=== PATIENT | female | born 1970 | race Caucasian/White ===

== ENCOUNTER → 2018-04-14 12:35 | Outpatient (CLI) | payer BC, SELFPAY ==
--- NOTE | 2018-04-14 12:40 | BI_ITS ---
MAMMOGRAPHY - BILATERAL SCREENING REASON FOR EXAM: Female, 47 years old. Routine annual screening examination. PERTINENT HISTORY: Non-contributory. TECHNIQUE: Digital bilateral breast lucie (3D mammographic acquisition) in the CC and MLO projections. 2-D mediolateral oblique (MLO) and craniocaudad (CC) views of both breasts were obtained. CAD: Full Field Digital Mammography with Computer Added Detection was performed. COMPARISON: Comparison is made with prior study dated September 15, 2016 and December 18, 2010. FINDINGS: Breast Composition: The breasts are heterogeneously dense, which may obscure small masses. There are no dominant masses or suspicious calcifications. Stable benign-appearing bilateral axillary lymph nodes. No other significant abnormalities are identified. There has been no significant change since the prior study. BI/SCREENING MAMM (CAD), BILAT IMPRESSION: Stable bilateral screening mammogram. Yearly follow-up mammogram recommended. (A) ASSESSMENT CATEGORY: BIRADS Category 2: Benign. A letter regarding these results will be sent to the patient by the facility within 30 days. Approximately 10% of breast cancers are not detected by mammography. A normal mammogram should not delay biopsy of a clinically suspicious abnormality. [id number] Electronically Signed: Theron Wall MD at 13:51 EST Tel [phone], Service support ,
--- OUTSIDE RECORDS SUMMARY | 2018-05-31 07:43 | XMS RPT_ITS ---
:1970 Author Organization OHIP Care Team Providers Name Role Phone Cristofer Maya Attending Unavailable Cristofer Maya Referring Unavailable Malys, Bree Primary Care Unavailable Cristofer Maya Attending Unavailable Cristofer Maya Referring Unavailable Malys, Bree Primary Care Unavailable Cristofer Maya Attending Unavailable Cristofer Maya Referring Unavailable Malys, Bree Primary Care Unavailable PROBLEMS PROBLEMS DATE TYPE CONDITION / CODE ATTENDING STATUS SOURCE 05/10/2018 Unknown N92.1 - Excessive Cristofer Maya Active [place] and frequent Community menstruation with Hospital irregular cycle / Repository N92.1(ICD-10) 04/19/2018 Unknown Z12.4 - Encounter Cristofer Maya for screening for Community malignant neoplasm [facility] cervix / Repository Z12.4(ICD-10) PROCEDURES PROCEDURES No Procedure Records FoundRESULTS RESULTS ENDOMETRIAL BX/CURETTINGS Observed: 05/10/2018 Status: F Source: [facility] 11:30 AM [facility] RE[facility]ITORY Patient: AVTAR FRANCOIS : 1970 (47/F) Acct Num: [id number] Phys: Cristofer Maya MD Unit Num: [id number] Loc: [facility] Specimen: [id number] Received: 05/10/181541 Spec Type: ENDOM BX/C TISSUES 1 TISSUES: Endometrium, NOS COMMENT Immunohistochemistry (RF19-) for surrogate HPV marker (p16) supports the above diagnosis. Case has been reviewed in consultation with Dr. Chambers who concurs with the above diagnosis. IDC:AM GROSS DESCRIPTION Received in fixative is one container labeled with the patient's name and designated endometrial biopsy. The specimen consists of multiple irregular and mucoid fragments of light pink-osorio soft tissue that in aggregate measure 2.5 x 2.5 x 0.2 cm. The specimen is totally submitted in one cassette. / AM:adrian 02/17 TC:5 CPT: 94423 HEADER OPERATION: Endometrial biopsy PRE-OP DIAGNOSIS: N92.1 TISSUE SUBMITTED: Endometrial biopsy MICROSCOPIC DESCRIPTION Slides are reviewed. MICROSCOPIC DIAGNOSIS Endometrial biopsy: Fragments of proliferative endometrium with eosinophilic metaplasia and glandular breakdown. Detached, unoriented fragments of squamous epithelium with moderate dysplasia ( HGSIL and NUBIA II). Fragments of benign endocervical mucosa. SJ:adrian 05/12/18 Signed Chivo Corral MD 05/15/18 <signature on file> Performed By: #### PEMB #### [facility] [address] [place] [address]. [place], [address] IMMUNOHISTOCHEMISTRY Observed: 05/10/2018 Status: F Source: [facility] 12:00 AM [facility] REPOSITORY Patient: AVTAR FRANCOIS : 1970 (47/F) Acct Num: [id number] Phys: Cristofer Maya MD Unit Num: [id number] Loc: [facility] Specimen: [id number] Received: 05/12/18 4949 Spec Type: IMMUNO TISSUES 1 TISSUES: Endometrium, NOS SPECIMEN INFORMATION: Tissue Source: Endometrial biopsy Clinical Info: N92.1 Specimen Number: [id number] CPT code: 62028, 72180 METHODOLOGY: Deparaffinized sections of prefer/formalin-fixed tissue or PAP/DQ stained slides are incubated with monoclonal/polyclonal antibodies/oligonucleotide probes. Localization is made via biotin free immunoperoxidase method. Appropriate controls are performed and reacted as expected. Results on target cell population are indicated in the following table: RESULTS: ANTIBODY / CLONE RESULT P16 (E6H4) positive Ki-67 (30-9) positive These tests were developed and their performance characteristics determined by [facility]. They may not have been cleared or approved by the U.S. Food and Drug Administration. The FDA has determined that such clearance or approval is not necessary. INTERPRETATION: Endometrial biopsy: Detached and unoriented fragments of squamous epithelium with moderate dysplastic changes. SJ:rg 05/15/18 Case has been reviewed in consultation with Dr. Chambers who concurs with the above diagnosis. IDC:AM PHYSICIAN AND INSTITUTION [address] [address] Signed Chivo Corral MD 05/15/18 <signature on file> Performed By: #### PIMM #### [facility] [address] [place] [address]. [place], [address] PAP IG W/REFLEX HR Collected: 04/19/2018 Status: F Source: [facility] HPV APTIMA 10:30 AM [facility] REPOSITORY Order Comment: CYTOLOGY INFORMATION: - CLINICAL INFORMATION: - DATE LMP/MENOPAUSE: 04/07/18 LMP - COLLECTION VIAL: Thin Prep Vial - PROGRAMMING MANAGER SOURCE: CERVICAL/ENDOCERVICAL - COLLECTION TECHNIQUE: BRUSH/SPATULA Specimen Comment: [id number] Specimen Comment: Source.............Cervix Specimen Comment: LMP / Prev Treat...TRD=[id number] Specimen Comment: No. of containers..01 ThinPrep Vial TYPE CODE TESTS RESULT OUT OF RANGE REFERENCE UNITS LAB L7400.0800 . Normal DIAGN Comment Result Comment: NEGATIVE FOR INTRAEPITHELIAL LESION AND MALIGNANCY. CELLULAR CHANGES ASSOCIATED WITH INFLAMMATION ARE PRESENT. LAB L7400.0900 . Normal ADEQ Comment Result Comment: Satisfactory for evaluation. Endocervical and/or squamous metaplastic cells (endocervical component) are present. LAB L7400.1400 . Normal PERFORM Comment Result Comment: Estefani Leos, Tableau Analyst (ASCP) LAB L7400.2575 . Normal TEST METHOD Comment Result Comment: This liquid based ThinPrep(R) pap test was screened with the use of an image guided system. LAB L7400.2600 . Normal . COMM LAB L7400.2700 . Normal PAPSMR Comment Result Comment: The Pap smear is a screening test designed to aid in the detection of premalignant and malignant conditions of the uterine cervix. It is not a diagnostic procedure and should not be used as the sole means of detecting cervical cancer. Both false-positive and false-negative reports do occur. LAB L7400.2800 . Normal HPV RFLX Comment Result Comment: The HPV DNA reflex criteria were not met with this specimen result therefore, no HPV testing was performed. Performed at: [facility] [id number] Landscape Technician: Ana Cristina Mcgovern MD, Phone: [phone] Performed By: #### L7400.0357 #### [facility] (refer to report for specific site) refer to report for address and phone number SCREENING MAMM (CAD), Observed: 04/14/2018 Status: F Source: [facility] 12:40 PM [facility] REPOSITORY [facility] Imaging Services [address] [place] [address] SCREENING MAMM (CAD), BILAT MR#: [id number] Acct: [id number] Name: AVTAR FRANCOIS Rep #: [id number] : 1970 F 47 From: Theron Wall MD PCP: Bree Hamilton DO Status: [facility] Study: SCREENING MAMM (CAD), BILAT Date of Exam: 04/14/18 Exam# [id number] Ordering Dr: Cristofer Maya MD MAMMOGRAPHY - BILATERAL SCREENING REASON FOR EXAM: Female, 47 years old. Routine annual screening examination. PERTINENT HISTORY: Non-contributory. TECHNIQUE: Digital bilateral breast lucie (3D mammographic acquisition) in the CC and MLO projections. 2-D mediolateral oblique (MLO) and craniocaudad (CC) views of both breasts were obtained. CAD: Full Field Digital Mammography with Computer Added Detection was performed. COMPARISON: Comparison is made with prior study dated September 15, 2016 and December 18, 2010. FINDINGS: Breast Composition: The breasts are heterogeneously dense, which may obscure small masses. There are no dominant masses or suspicious calcifications. Stable benign-appearing bilateral axillary lymph nodes. No other significant abnormalities are identified. There has been no significant change since the prior study. BI/SCREENING MAMM (CAD), BILAT IMPRESSION: Stable bilateral screening mammogram. Yearly follow-up mammogram recommended. (A) ASSESSMENT CATEGORY: BIRADS Category 2: Benign. A letter regarding these results will be sent to the patient by the facility within 30 days. Approximately 10% of breast cancers are not detected by mammography. A normal mammogram should not delay biopsy of a clinically suspicious abnormality. [id number] Electronically Signed: Theron Wall MD at 13:51 EST Tel [phone], Service support , CC: Cristofer Maya MD; Bree Hamilton DO Enforcement Manager: Signed ALLERGIES ALLERGIES DATE TYPE / NAME / CODE REACTION SEVERITY SOURCE CODE 04/03/2015 Drug diphenhydramine Other Unknown [place] Allergy/41 HCl/[id number](RXNORM Community [id number]([facility]) Repository 04/03/2015 Drug Penicillins/[id number] Hives Unknown [place] Allergy/41 6(RXNORM) Community 0770024([facility]) Repository ENCOUNTERS ENCOUNTERS ADMIT/DISCHARGE ACCOUNT ADMITTING ENCOUNTER LOCATION SOURCE NUMBER CLASS 05/10/2018 [id number] Ambulatory [place] [facility] ing:[facility] Repository 04/19/2018 [id number] Ambulatory [place] 4 [facility] ing:[facility] Repository 04/14/2018 [id number] Ambulatory [place] 9 [facility] ing:OPBI Repository PAYERS PAYERS ENCOUNTER GUARANTOR PAYER SUBSCRIBER SOURCE 05/10/2018 KASIA Mcclain Primary KASIA Mcclain [place] [id number] Insurance:ANTHEMPolic BRICKERDOB: [facility] y [place]: [id number] [id number] Repository [address]Xys: (330) julia Date:3460-62-42IF [phone] () [address], [place] [address]JB: 05/10/2018 Secondary NOT GIVENUNK Ellie Insurance:SELF PAY [facility] Number: Effective Repository Date:2018-05-10 04/19/2018 KASIA Mcclain Primary KASIA Mcclain [place] [id number] Insurance:ANTHEMPolic BRICKERDOB: [facility] y Number: [id number], [place] [id number] Repository [address]Pvz: (330) julia Date:3596-20-58WP [phone] () [address], [place] [address]CL: 04/19/2018 Secondary NOT GIVENUNK Ellie Insurance:SELF PAY [facility] Number: Effective Repository Date:2018-04-19 04/14/2018 KASIA L Primary KASIA Mcclain [place] [id number] Insurance:ANTHEMPolic BRICKERDOB: [facility] y Number: [id number], [place] [id number] Repository [address]Mrj: (330) julia Date:5010-03-00QF [phone] () [address], [place] [address]RK: 04/14/2018 Secondary NOT GIVENUNK Ellie Insurance:SELF PAY [facility] Number: Effective Repository Date:2018-02-01
== END ==
PROVIDERS: Family Provider Family Medicine; PCP Family Medicine; Referring Provider Obstetrics & Gynecology; Visit Provider Obstetrics & Gynecology
DX: Z12.31 Encounter for screening mammogram for malignant neoplasm of breast (principal)
CPT/HCPCS: 77063; 77067

== ENCOUNTER → 2018-04-19 15:54 | Outpatient (CLI) | payer BC, SELFPAY ==
[2018-04-23 08:43] LABS: HPV Reflexed? NOT INDICATED
== END ==
PROVIDERS: Family Provider Family Medicine; PCP Family Medicine; Referring Provider Obstetrics & Gynecology; Visit Provider Obstetrics & Gynecology
DX: Z12.4 Encounter for screening for malignant neoplasm of cervix (principal)
CPT/HCPCS: 87624; 88175; G0145

== ENCOUNTER → 2018-05-10 16:14 | Outpatient (CLI) | payer BC, SELFPAY ==
--- NOTE | 2018-05-10 | IMM_PTH ---
PATIENT: AVTAR DAVIS LOC: [facility] U#:[id number] AGE/SX: 54/F ROOM: RE05/10/[address]: Dr. Cristofer Maya MD : 1970 BED: DIS: SPEC #: [id number] RECD: 05/12/18 13:37 STATUS: FARIBA REQ #: [id number] KENYON: 05/10/18 00:[address]: Cristofer Maya DEPT: IMMUNOHISTOCHEMISTRY RECD BY: Gracie Leonardo ENTERED: 05/12/18 13:38 SP TYPE: IMMUNO OTHR DR: Dr. Bree Hamilton, DO Tissues: Endometrium, NOS Procedures: p16 (initial) KI-67 (add) PHYSICIAN & INSTITUTION [place] [address] SPECIMEN INFORMATION: Tissue Source: Endometrial biopsy Clinical Info: N92.1 Specimen Number: [id number] CPT code: 15550, 36276 METHODOLOGY: Deparaffinized sections of prefer/formalin-fixed tissue or PAP/DQ stained slides are incubated with monoclonal/polyclonal antibodies/oligonucleotide probes. Localization is made via biotin free immunoperoxidase method. Appropriate controls are performed and reacted as expected. Results on target cell population are indicated in the following table: RESULTS: ANTIBODY / CLONE RESULT P16 (E6H4) positive Ki-67 (30-9) positive These tests were developed and their performance characteristics determined by [facility]. They may not have been cleared or approved by the U.S. Food and Drug Administration. The FDA has determined that such clearance or approval is not necessary. INTERPRETATION: Endometrial biopsy: Detached and unoriented fragments of squamous epithelium with moderate dysplastic changes. SJ:adrian 05/15/18 Case has been reviewed in consultation with Dr. Chambers who concurs with the above diagnosis. IDC:AM
--- NOTE | 2018-05-10 11:30 | EMB_PTH ---
PATIENT: AVTAR DAVIS LOC: [facility] U#:[id number] AGE/SX: 54/F ROOM: RE05/10/[address]: Dr. Cristofer Maya MD : 1970 BED: DIS: SPEC #: [id number] RECD: 05/10/18 15:42 STATUS: FARIBA REEdgar #: [id number] KENYON: 05/10/18 11:[address]: Cristofer Maya DEPT: SURGICAL PATHOLOGY RECD BY: Palmer Silva ENTERED: 05/11/18 10:49 SP TYPE: ENDOM BX/C OTHR DR: Dr. 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 Detached, unoriented fragments of squamous epithelium with moderate dysplasia (HGSIL and NUBIA II). Fragments of benign endocervical mucosa. LAITH:adrian 05/12/18 COMMENT Immunohistochemistry ([id number]) for surrogate HPV marker (p16) supports the above diagnosis. Case has been reviewed in consultation with Dr. Chambers who concurs with the above diagnosis. IDC:AM MICROSCOPIC DESCRIPTION Slides are reviewed. GROSS DESCRIPTION Received in fixative is one container labeled with the patient's name and designated endometrial biopsy. The specimen consists of multiple irregular and mucoid fragments of light pink-osorio soft tissue that in aggregate measure 2.5 x 2.5 x 0.2 cm. The specimen is totally submitted in one cassette. / AM:adrian 05/11/18 TC:5 CPT: 36204
== END ==
PROVIDERS: Family Provider Family Medicine; PCP Family Medicine; Referring Provider Obstetrics & Gynecology; Visit Provider Obstetrics & Gynecology
DX: N92.1 Excessive and frequent menstruation with irregular cycle (principal)
CPT/HCPCS: 88305; 88341; 88342

== ENCOUNTER 2018-09-04 06:01 | Day surgery (SDC) | payer BC, SELFPAY ==
--- NOTE | 2018-08-27 12:07 | PCM.HP.BLA ---
History and Physical Date of Admission: 09/04/18 Surgical History and Physical Michelle Ramos, a 47 year old female 2 0 2 0 2, presents for RAVH/Román Salpingectomy/ unilateral oophrectomy on September 04, 2018 at 7:30. -- NUBIA II on EMBx, Menorrhagia, Desires Sterilization -- Heavy menses which began several years ago. Michelle claims it started gradually. It is located in the vagina. Severity is moderate and worsening. Additional comment: pelvic u/s normal, OCPs not sufficiently helpful for heavy menses and EMBx OK but NUBIA II noted on specimen despite all normal PAPs. Prior cryo to cervix for dysplasia. MEDICATIONS HISTORY: Current medications prescribed by our practice are: 1. EpiPen 0.3 mg/0.3 mL injection, auto-injector, As Directed 2. fluoxetine 20 mg tablet, One pill by mouth once a day 3. hydrochlorothiazide 12.5 mg tablet, One pill by mouth once a day 4. Ortho-Cyclen (28) 0.25 mg-35 mcg tablet, One pill by mouth once a day ALLERGIES: Lactose, V and diarrhea, PCN, Black out, Bee Stings, Anaphalaxis, Benadryl, Loc, Bee Pollen, Anaphylaxis, Benadryl, Mental status changes, Lactose, Vomiting, Penicillins and Feeling faint Infections - Chicken pox and Dooly Illnesses - Lactose intol., hx of abn paps, allergies and hypertension Accidents - no injuries of consequence Hospitalizations - Childbirth and see surgery Review of Systems: GENERAL - Denies fever, or chills SKIN - Denies skin changes EYES - Denies visual changes EARS - Denies difficulty hearing NOSE - Denies nasal congestion or bleeding MOUTH - Denies sore throat or difficulty swallowing NECK - Denies pain or swelling RESPIRATORY - Denies shortness of breath or wheezing CARDIOVASCULAR - Denies palpitations or chest pain GASTROINTESTINAL - Denies nausea, vomiting, diarrhea, constipation GENITOURINARY - Denies dysuria, frequency of urination, incontinence of urine MUSCULOSKELETAL - Denies joint or muscle pain NEUROLOGICAL - Denies localized numbness or weakness PSYCHIATRIC - Denies depression or anxiety ENDOCRINE - Denies heat or cold intolerance, weight loss or gain HEMATO-IMMUNOLOGIC - Denies excessive bleeding with cuts SOCIAL HISTORY: Alcohol Use - denies drinking Smoking - denies smoking Diet - Avoids Dairy products as she lactose intolerant Lifestyle - low stress lifestyle and Exercise - minimal Seat Belt Use - always Employer - [employer] Job Description - Strategic Planning Manager Illicit Drug Use - denies use of street drugs Sexual Activity - and ACTIVE ONE PARTNER Residence - lives with Hours Worked - 10 Spouse-Sig Other Name - Aman Spouse-Sig Other Occupation - [employer] Helper----K[employer] Spouse-Sig Other Phone No - [phone] Children Name(s) - Chris Amos Control - Ortho T[employer] FAMILY HISTORY: Maternal Grandmother: DM II. Maternal Grandfather: Heart Disease. Paternal Grandfather: Heart Disease. MENSTRUAL HISTORY: LMP Known?- DefiniteAmount/Duration - 2 days, Regularity - Regular, Frequency - 28 days, LMP - 05/04/18, Age Onset Menarche - 12 PAST PREGNANCIES: Total Pregnancies - 4; Full Term Pregnancies - 2; Premature - 0; Abortions, Induced - 0; Abortions, Spontaneous - 2; Ectopics - 0; Multiple Births - 0; Living Children - 2 SURGICAL HISTORY: 1. 8-C/S 2. 09/15/2008 Repeat C section ; Kailey Montiel MD 3. 05/02/1996 Cryosurgery to cervix 4. D + C 12-01-07 ; - SAB PHYSICAL EXAM BP- 150/90 Sitting, Right arm, regular cuff Weight- 175.88118 lbs Height- 62.50 inch BMI:31.56 CONSTITUTIONAL - NAD, well nourished, and well developed SKIN - No rash, lesions, or ulcers HEENT - Normocephalic, PERRLA, EOMI NECK - No nodes, no nuchal rigidity and thyroid normal size and texture LYMPH NODES - Palpation of lymph nodes in neck and groins within normal limits LUNGS - CTA x2 without wheezes, crackles or rales CARDIAC - Regular rate and rhythm without rubs, murmurs, or gallops BREAST - No dominant masses, no tenderness, no axillary adenopathy, no nipple discharge, no skin changes ABDOMEN - Without hepatosplenomegaly, distention, masses, rebound, or guarding; normal bowel sounds; no hernias EXTREMITIES - No edema or calf tenderness NEUROLOGICAL - Cranial nerves II-XII grossly intact PSYCHIATRIC - A and O to time, place, person, mood and affect DETAILED PELVIC EXAM External Genital Vagina - non-tender without lesions Urethra/Urethral Meatus - non-tender Bladder - non-tender Vagina - vaginal flores are pink and moist without loss of rugae and no evidence of atropy Cervix - without cervical motion tenderness and has normal size and features without evident lesions Uterus - multiparous size 6 cm & wt 75-125 g Adnexa - clear without masses or tenderness ASSESSMENT/PLAN: 1. Menorrhagia and Moderate Dysplasia Of Cervix Again reviewed options for treatment and pt desires we proceed with RAVH/BS/USO. Discussed RBAs at length and all questions answered.
[2018-08-30 11:38] LABS: Hematocrit 40.1 % (37-47); Hemoglobin 13.4 g/dl (12.0-15.0); Mean Corp Hgb Conc 33.4 g/gl (32-36); Mean Corpuscular Hgb 29.6 pg (27.0-32.0); Mean Corpuscular Volume 88.7 fL (81-99); Mean Platelet Vol. 10.3 fl (6.2-12.0); Platelet Count 285 K/mm3 (150-450); RBC Distribution Width CV 12.7 % (11.6-14.6); RBC Distribution Width SD 40.8 fl (35.1-43.9); Red Blood Count 4.52 M/mm3 (4.2-5.4)
[2018-08-30 11:43] LABS: Scan Indicated on CBC? Y/N NO
[2018-08-30 11:49] LABS: Internal QC Validated? YES +Cl - CLEAR BKGD; Pregnancy, Serum, hCG Quali. NEGATIVE Negative
[2018-08-30 11:54] LABS: International Normalized Ratio 1.2; Partial Thromboplast Time 30.4 Seconds (24.1-36.2); Prothrombin Time (Protime)PT. 14.9 SECONDS (11.7-14.9)
[2018-08-30 12:08] LABS: ALB/GLOB Ratio 1.1 RATIO (0.9-2.4); AST(SGOT) 15 U/L (15-37); Alanine Aminotransfer ALT/SGPT 21 U/L (13-56); Albumin, Serum 3.8 g/dL (3.2-5.0); Alkaline Phosphatase 64 U/L (45-117); Anion Gap 3 (5-15); BUN 14 mg/dL (7-18); BUN/Creat Ratio 21.2 RATIO (10-20); Calcium,Total 9.2 mg/dL (8.5-10.1); Chloride 104 mmol/L (98-107); Creatinine, Serum 0.66 mg/dL (0.55-1.02); EST Glomerular Filtration Rate 101 mL/min (>60); Est Glom Filt Rate - Afr Amer 123 mL/min (>60); Globulin 3.6 g/dL (2.2-4.2); Glucose 130 mg/dL (74-106); Potassium 4.2 mmol/L (3.5-5.1); Protein, Total 7.4 g/dL (6.4-8.2); Sodium Level 138 mmol/L (136-145); Thyroid Stim Hormone (TSH) 0.51 uIU/mL (0.358-3.74)
[2018-08-30 12:09] LABS: Hemoglobin A1c 6.7 % (4.2-6.3)
[2018-09-04] VITALS (10 sets, daily range): BP systolic 98–174; BP diastolic 55–96; PULSE 72–96; RESP 16–18; TEMP 36.4–37.4; O2SAT 93–100; BMI 31.6
[2018-09-04 06:33] LABS: Internal QC Validated? YES +Cl - CLEAR BKGD; Pregnancy, Urine Negative Negative
[2018-09-04 06:50] LABS: Bedside Glucose 152 mg/dL (70-110)
--- NOTE | 2018-09-04 07:30 | HYST_PTH ---
PATIENT: AVTAR DAVIS LOC: [facility] U#:[id number] AGE/SX: 47/F ROOM: RE09/04/[address]: Dr. Cristofer Maya MD : 1970 BED: DIS: 09/05/2018 SPEC #: [id number] RECD: 09/04/18 09:31 STATUS: FARIBA AAKASH #: [id number] KENYON: 09/04/18 07:[address]: Cristofer Maya DEPT: SURGICAL PATHOLOGY RECD BY: Palmer Silva ENTERED: 09/04/18 09:41 SP TYPE: HYSTERECT OTHR DR: MD Dr. Bree Marino DO Tissues: Uterus, NOS Procedures: Surgery Specimen Level V HEADER OPERATION: Laparoscopic robotic hysterectomy, bilateral salpingo-oophorectomy PRE-OP DIAGNOSIS: Menorrhagia and moderate dysplasia of cervix TISSUE SUBMITTED: Uterus, cervix, bilateral fallopian tubes, bilateral ovaries MICROSCOPIC DIAGNOSIS Uterus, cervix, bilateral fallopian tubes and bilateral ovaries, hysterectomy and bilateral salpingo-oophorectomy: Cervix - mild chronic cystic cervicitis. - Negative for dysplasia. See comment. Endometrium - early secretory endometrium. Myometrium - focal adenomyosis. - Intramural leiomyoma (0.6 cm in greatest dimension). Bilateral fallopian tubes - no pathologic diagnosis. Bilateral ovaries - no pathologic diagnosis. SJ:adrian 09/05/18 COMMENT The entire cervix is examined. Please make reference to previous specimen ([id number]) endometrial biopsy with diagnosis of fragments of proliferative endometrium with eosinophilic metaplasia and glandular breakdown and detached and unoriented fragments of squamous epithelium with moderate dysplasia. MICROSCOPIC DESCRIPTION Slides are reviewed. GROSS DESCRIPTION Received in fixative is one container labeled with the patient's name and designated uterus, cervix, bilateral fallopian tubes, bilateral ovaries. The specimen consists of a uterus with attached bilateral fallopian tubes and ovaries. The uterus with attached cervix measures 7 cm in length x 4 cm in width x 3.2 cm in AP dimension and weighs 47.3 gm. The serosal surface of the uterus is pink and smooth. The attached cervix measures 3.5 cm in length x 3 cm in diameter. The ectocervical mucosa is osorio-pink and smooth. The patulous cervical os measures 1 cm in length. The uterus is opened to reveal a patent endocervical canal. The triangular endometrial cavity measures 2.8 x 2 cm with an average endometrial thickness of 0.1 cm. The endometrial surface is osorio-pink and homogenous. Sections through the myometrium demonstrate cut surfaces which are osorio and homogenous. Grossly, no fibroid or other myometrial lesion is found. The right ovary measures 2.8 x 1.5 x 0.9 cm. The serosal surface is osorio and slightly wrinkled. The ovary is sectioned to reveal corpora albicantia. No lesion is found. The right fallopian tube measures 6.5 cm in length x 0.5 cm in diameter. The serosal surface is pink and smooth. A fimbriated end is present. Cross-sections demonstrate a pinpoint lumen. The left ovary measures 2.4 x 1.5 x 1 cm. The serosal surface is osorio and slightly wrinkled. Sectioning demonstrates a reddish-pink, congested area measuring 0.6 cm in greatest dimension. The left fallopian tube measures 5 cm in length x 0.5 cm in diameter. The serosal surface is pink and smooth. A fimbriated end is present. Cross-sections demonstrate a pinpoint lumen. Personal Banker sections are submitted as follows: 1-9 - cervix, entirely submitted, 10 & 11 - anterior endomyometrium, 12 & 13 - posterior endomyometrium, 14 - right ovary and fallopian tube, 15 - left ovary and fallopian tube. / CE:adrian 09/04/18 TC:5 CPT: 37779
[2018-09-04] MEDS: Ropivacaine 0.5% 30 ML Vial (08:00)
--- NOTE | 2018-09-04 09:27 | OP.PCM_ITS ---
Report of Operation Date of Procedure: 09/04/18 Pre-Operative Diagnosis: Moderate Cervical Dysplasia, Menorrhagia copy that Post-Operative Diagnosis: Moderate Cervical Dysplasia, Menorrhagia Surgery/Procedure Performed:: Robotic Assisted Vaginal Hysterectomy and Bilateral Salpingo-Oophorectomy Description of Surgical Findings:: 8 cm uterus with normal-appearing fallopian tubes and ovaries. Evidence of prior sections as anterior adhesions were present. superintendent recreation: Steve Reaz Type of Anesthesia:: General - Endotracheal Anesthesiologist: Florentino Villalba Specimen's removed: Uterus, bilateral fallopian tubes and ovaries Drains: Richardson to straight drain Estimated Blood Loss (mL): Minimal Fluids Replaced: Crystalloid Description of Procedure: Surgeon: Cristofer Maya MD, FACOG Indication: This is a 47 year old patient who has been having problems with menorrhagia and recent cervical dysplasia. Conservative measures have not been helpful. The patient has been counseled regarding the risks, benefits and alternatives of this procedure including the possibility of bleeding, infection, and injury to surrounding structures such as bowel bladder and all questions were answered. She understands that if BSO is performed that she may need to be on HRT for an indefinite period of time. Procedure: Pt taken to the operating room where after induction of general anesthesia the patient was prepped and draped in the usual sterile fashion and placed on a non-slip Huggy-u-vac device. Trendendelenburg test was satisfactory. Bladder was drained of urine with a Richardson catheter which was left in place. Anterior cervix grasped and cervix was dilated to about 3-4 mm. Uterus sounded to 7 cms. 0-Vicryl suture was placed at the 3:00 and 9:00 position of the cervix. A small V-care device was then placed in the uterus to allow uterine manipulation and attention was turned to the laparoscopic portion of the procedure. Ropivocaine 0.5% was injected approximately 2-3 cm superior to the umbilicus and an 8 mm robotic camera port was introduced directly with intraperitoneal placement confirmed with insufflation. 8 mm robotic side ports were introduced under direct visualization approximately 10.5 cm lateral and 2 cm inferior to the umbilical port. A 5 mm left upper quadrant port was introduced and airseal insufflation with CO2 was started. The above findings were noted. Robot was docked without difficulty and attention turned to the robotic portion of the procedure. Approximately 20 cc of Ropivicaine was used. Bilateral infundibulocal ligaments were ligated with 35 sandoval bipolar coagulation to the level of the round ligament. The posterior aspect of the cervix was identified and then opened for about 1 cm using 25 watt monopolar cautery identifying the V-care device which had been placed vaginally. Bladder flap was opened and divided to the level of the round ligaments using monopolar cautery. Progressive bites were then ligated on each side of the cervix with 35 sandoval bipolar cautery to the uterine arteries. The anterior vaginal mucosa was then entered and cervix circumscribed with monopolar cautery. Uterus and attached ovaries and tubes were then removed through the vagina. Vaginal cuff was closed first with 0-Vicryl Nolberto stitches placed at each angle followed by closure of the mid-cuff with 0-Monocryl V-lock suture in two layers. Pelvis was copiously irrigated with saline and the right ureter bautista noted to peristalse. Robot was undocked and trocars were removed with as much gas as possible. Incisions were closed with 4-0 Monocryl subcuticular sutures and incisions covered with steri-strips and opsite dressing. The patient tolerated the procedure well and was taken to the recovery room in satisfactory condition. Sponge, instruments and needle counts were all correct. There were no apparent complications of the surgery. Clindamycin 600 mg IV was given prior to the procedure. Estimated Blood Loss: Minimal Specimen to Pathology: Uterus and bilateral tubes and ovaries Grafts/Implants Used: None - Complications None - Admit VTE Documentation VTE Present on Admission: Yes VTE Mechan Device Prophylaxis: SCD's VTE Pharm Prophylaxis ordered?: Yes
--- NOTE | 2018-09-04 09:30 | DCINST_ITS ---
Discharge Diet: No Restrictions Discharge Activity: Return to Normal Activity, May not drive while taking narcotic pain medications., May Shower, May Take a Tub Bath May resume sexual activity in: 6-8 weeks Call your doctor if your incision/area has: Continuous Slow Oozing, Sudden Incre ased Bleeding, Increased Pain/ Swelling, Increased Redness, Foul Smelling Discharge Call your doctor if you observe: Fever of 101 or Higher, Inability to urinate, Inability to have a bowel movement, Using more than one pad per hour Allergies/Adverse Reactions: Allergies bee venom protein (honey bee) Allergy (Verified 08/28/18 11:16) Anaphylaxis lactose Allergy (Verified 08/28/18 11:16) Food Allergy Penicillins [PCN] Allergy (Verified 04/03/15 13:49) Hives diphenhydramine HCl [From Benadryl] Adverse Reaction (Verified 04/03/15 13:49) Other Medications to take at Discharge Hydrochlorothiazide 12.5 mg PO DAILY 04/03/15 Fluoxetine [Prozac] 20 mg PO QHS 08/28/18 Docusate Sodium [Colace] 100 mg PO BID PRN PRN #60 cap 09/04/18 Estradiol 2 mg PO DAILY #100 tab 09/04/18 Oxycodone [Oxyir] 5 mg PO Q6H PRN PRN 7 Days #20 tab 09/04/18 The following prescriptions were given: Oxycodone [Oxyir] 5 mg PO Q6H PRN PRN 7 Days #20 tab PRN Reason: Severe Pain (6-02/08) Docusate Sodium [Colace] 100 mg PO BID PRN PRN #60 cap PRN Reason: Constipation Estradiol 2 mg PO DAILY #100 tab Orders to be completed after discharge: Hemoglobin A1c Time Frame: 08/28/18, Location: Laboratory Basic Metabolic Profile (BMP) Time Frame: 08/28/18, Location: Laboratory ,Urine Time Frame: 09/04/18, Location: Laboratory Primary Care Physician: Bree Hamilton DO [Primary Care Provider] - Test Results: Test results from this visit will be discussed in further detail at your follow- up appointment, if applicable. Please Follow Up With: Cristofer Maya MD When: 2 to 3 weeks
[2018-09-04 09:56] LABS: Bedside Glucose 222 mg/dL (70-110)
[2018-09-04 11:50] LABS: Bedside Glucose 205 mg/dL (70-110)
[2018-09-04] MEDS: Lactated Ringers 1,000 ML 150 ML IV ×2 (12:00→19:05)
[2018-09-04] MEDS: hydroCHLOROthiazide 12.5mg 12.5 MG PO (13:03)
[2018-09-04] MEDS: 0.9% NaCl Peripheral Flush Adult/Peds IV ×3 (13:04→22:57)
[2018-09-04] MEDS: Estradiol 1 MG Tablet 2 MG PO (13:04)
[2018-09-04] MEDS: Ketorolac 30 MG/ML Syringe IV ×2 (13:04→19:06)
--- NOTE | 2018-09-04 15:43 | NURSING ---
pt up to bathroom at this time to clean up-- minimal drainage status post op. New pad and underwear placed. Pt tolerated walking well.
[2018-09-04] MEDS: Enoxaparin 30 MG/0.3 ML Syringe SC (19:06)
[2018-09-04] MEDS: FLUoxetine 20 MG Capsule PO (22:31)
[2018-09-04] MEDS: Acetaminophen 500 MG Tablet 1000 MG PO (22:53)
[2018-09-05] MEDS: Ketorolac 30 MG/ML Syringe IV ×3 (01:32→12:24)
[2018-09-05 01:38] VITALS: BP 126/66; PULSE 90; RESP 18; TEMP 37.2; O2SAT 94
[2018-09-05] MEDS: Lactated Ringers 1,000 ML 150 ML IV (02:25)
[2018-09-05 05:43] LABS: Hematocrit 32.5 % (37-47); Hemoglobin 10.9 g/dl (12.0-15.0); Mean Corp Hgb Conc 33.5 g/gl (32-36); Mean Corpuscular Hgb 29.6 pg (27.0-32.0); Mean Corpuscular Volume 88.3 fL (81-99); Mean Platelet Vol. 10.8 fl (6.2-12.0); Platelet Count 221 K/mm3 (150-450); RBC Distribution Width CV 12.5 % (11.6-14.6); RBC Distribution Width SD 39.1 fl (35.1-43.9); Red Blood Count 3.68 M/mm3 (4.2-5.4); White Blood Count 8.6 K/mm3 (4.4-11.0)
[2018-09-05 05:45] LABS: Scan Indicated on CBC? Y/N NO
[2018-09-05 06:08] LABS: Creatinine, Serum 0.72 mg/dL (0.55-1.02); EST Glomerular Filtration Rate 92 mL/min (>60); Est Glom Filt Rate - Afr Amer 111 mL/min (>60); Estimated Creatinine Clearance 75.58 ml/min
[2018-09-05 07:39] VITALS: O2SAT 95
--- NOTE | 2018-09-05 08:49 | PN.OBGYN_ITS ---
Subjective: Patient without complaints. Tolerating diet well. Positive flatus. Pain well controlled. Minimal vaginal bleeding. - Physical Exam Vital Signs Temp Pulse Resp BP Pulse Ox 99.0 F 90 18 126/66 H 94 09/05/18 01:38 09/05/18 01:38 09/05/18 01:38 09/05/18 01:38 09/05/18 01:38 Oxygen Flow Rate (L/min) 2 Oxygen Delivery Method Room Air Weight: 172 lb 9.951 oz Body Mass Index (BMI) 31.6 Finger Stick Blood Glucose 222 Intake and Output for Last 24 Hours 09/03/18 09/04/18 09/05/18 23:59 23:59 23:59 Intake Total 2675 / 2675 2443 / 2443 Output Total 1280 / 1280 1725 / 1725 Balance 1395 / 1395 718 / 718 Laboratory Tests Past 24 Hrs 09/05/18 09/05/18 05:20 05:20 WBC 8.6 RBC 3.68 L Hgb 10.9 L Hct 32.5 L MCV 88.3 MCH 29.6 MCHC 33.5 RDW 12.5 RDW Differential 39.1 Plt Count 221 MPV 10.8 Creatinine 0.72 Estim Creat Clear Calc 75.58 Est GFR (MDRD) Af Amer 111 Est GFR (MDRD) Non-Af 92 POC Glucose 09/04/18 09/04/18 11:41 09:54 POC Glucose 205 H 222 H Wounds are clean, dry, intact. Good urine output. Hemoglobin and creatinine okay. Medical Necessity - Tobacco Use Smoking Status: Never smoker Assessment/Plan Doing well postoperative day #1 status post robotic assisted vaginal hystere ctomy and bilateral salpingo-oophorectomy. Will release to home with routine instructions.
[2018-09-05 09:53] VITALS: BP 134/82; PULSE 80; RESP 16; TEMP 37; O2SAT 96
[2018-09-05] MEDS: Estradiol 1 MG Tablet 2 MG PO (09:56)
[2018-09-05] MEDS: hydroCHLOROthiazide 12.5mg 12.5 MG PO (09:57)
[2018-09-05] MEDS: Acetaminophen 500 MG Tablet 1000 MG PO (10:00)
[2018-09-05] MEDS: 0.9% NaCl Peripheral Flush Adult/Peds IV (12:25)
== END 2018-09-05 12:45 | disposition home or self-care (01) ==
LOC: SDC 06:03 → AC 06:03 → MS3 09:07
PROVIDERS: Anesthesiology; Family Provider Family Medicine; PCP Family Medicine; Referring Provider Obstetrics & Gynecology; Visit Provider Obstetrics & Gynecology
PROC: 0UT94ZZ Resection of Uterus, Percutaneous Endoscopic Approach (ICD-10-PCS; CPT 58552; principal; 2018-09-04 07:10)
DX: N72 Inflammatory disease of cervix uteri (principal); D25.1 Intramural leiomyoma of uterus; N87.1 Moderate cervical dysplasia; N92.0 Excessive and frequent menstruation with regular cycle; N80.0 Endometriosis of uterus
CPT/HCPCS: 58552; 36415; 80053; 81025; 82565; 82962; 83036; 84443; 84703; 85027; 85610; 85730; 86850; 86900; 88307; J7120; A4216; J2405

== ENCOUNTER → 2019-10-16 10:18 | Outpatient (CLI) | payer BC, SELFPAY ==
[2018-09-04 10:52] VITALS: BMI 31.6
--- NOTE | 2019-10-16 10:21 | BI_ITS ---
MAMMOGRAPHY - BILATERAL SCREENING REASON FOR EXAM: Female, 48 years old. Routine annual screening examination. PERTINENT HISTORY: Aunt with breast cancer. TECHNIQUE: Digital bilateral breast lisandra (3D mammographic acquisition) in the CC and MLO projections. 2-D mediolateral oblique (MLO) and craniocaudad (CC) views of both breasts were obtained. CAD: Full Field Digital Mammography with Computer Added Detection was performed. COMPARISON: Comparison is made with prior examination dated April 14, 2018 and September 15, 2016. FINDINGS: Breast Composition: The breasts are heterogeneously dense, which may obscure small masses. There are no dominant masses or suspicious calcifications. Stable benign appearing bilateral axillary methods. No other significant abnormalities are identified. There has been no significant change since the prior study. BI/SCREEN MAMM (CAD) W/LISANDRA BILAT IMPRESSION: Stable bilateral screening mammogram. Yearly follow-up mammogram recommended. (A) ASSESSMENT CATEGORY: BIRADS Category 2: Benign. A letter regarding these results will be sent to the patient by the facility within 30 days. Approximately 10% of breast cancers are not detected by mammography. A normal mammogram should not delay biopsy of a clinically suspicious abnormality. [id number] Electronically Signed: Theron Wall, at 12:20 EDT , Service support ,
--- OUTSIDE RECORDS SUMMARY | 2020-02-17 14:10 | XMS RPT_ITS | CCD ---
:1970 External Reference #:[id number] Author Organization [facility] Care Team Providers Name Role Phone Unavailable Unavailable Unavailable Allergies Reported Allergen Reaction(s) Severity Date of Onset Location Bee Translations: [ BEES] AOF 10-30-2015 - [facility] Reposito ry diphenhydrAMINE 10-27-2007 [facility] Translations: [ [facility] ito DIPHENHYDRAMINE HCL] lactose Translations: [ 10-27-2007 [facility] LACTOSE] [facility] Reposito ry Penicillins Translations: [ [facility] 10-27-2007 [facility] PENICILLINS] [facility] Reposito ry Results Result Name Value Range Unit Interpretation Flag Date Location group a strep by pcr on 2017-02-02 GAS Specimen Source Throat Swab Normal 02-03-[address] [facility] ([id number]) Comment: Performed By: #### GASPCR ## ##[facility] [place], [place] [phone] Group A Strep PCR Negative for Group A Normal 1 [facility] Streptococcus by PCR. [place] ([id number]) Comment: Result Comment: This test wa s developed and its performance characteristics determined by [facility] [place] ([facility] .It has not been cleared or approved by the FDA. -[facility] is regulated under [place] as qualified to perform high-complexity testing. This test is used f or clinical purposes. It should not be regarded as investigational or for re search. Performed By: #### GASPCR ## ##[facility] [place], [place] [id number]- [phone] progress on 2017-01 PROGRESS HNO ID: [id number]: Vania ross 02-01-2017 Hemant (Ibrahima) Timmyervice: (none)Author Clinic Type: Physician AssistantType: Erickson Marcos NotesFiled: 02/01/2017 8:08 PMNote ([id number]) Text:02/01/2017Patient presents with:Sore Throat: x 2 daysEarache: (right) ear x 2 daysCough: x 2 daysFatigue: x 2 daysbodyaches: x 2 daysSUBJECTIVE: This is a 46 year old that is here today for Complaint(s) ofcough and congestion x 2 days. + sinus pain and pressure. Notes cough.Fatigue and body aches associated. + sore throat, son tx for strep last. alos mention right ear pain x 2 days. Denies fever/chills,SOB, wheezing. Notes some eye watering on the right side. Sinuspressure is worse on the right side. Denies fever/chills, halos, visionchanges, contact lenses, nausea, vomiting, hx of cluster HAs.PAST MEDICAL HISTORYDiagnosis Date- Hyperlipemia- HypertensionALLERGIES Bees; Benadryl [Diphenhydramine Hcl]; Lactose; PenicillinsMEDICATIONSCurrent Outpatient Prescriptions:Hydrochlorothiazide 12.5 mg capsule Take 12.5 mg by mouth once daily.cyanocobalamin (VITAMIN B-12) 1,000 mcg tab Take 1,000 mcg by mouth oncedaily.VITAMIN E,DL-ALPHA TOCOPHEROL, (VITAMIN E, BULK, MISC) once daily.pyridoxine (VITAMIN B-6) 100 mg tablet Take 100 mg by mouth once daily.NORGESTIMATE-ETHINYL ESTRADIOL (ORTHO TRI-CYCLEN, 28, ORAL) Take bymouth.codeine-guaiFENesin (ROBITUSSIN AC) 10-100 mg/5 mL syrup Take 5-10 mL bymouth four times daily as needed for Cough. May cause drowsiness.codeine-guaiFENesin (ROBITUSSIN AC) 10-100 mg/5 mL syrup Take 5-10 mL bymouth four times daily as needed for Cough. May cause drowsiness.gemfibrozil (LOPID) 600 mg tablet Take 600 mg by mouth twice daily beforemeals.No current facility-administered medications for this visit.SOCIAL HISTORYSocial History Marital status: Spouse name: Years of education: Number of children:Social History Main Topics Smoking status: Never Smoker Alcohol use: No Drug use: [facility] reviewed and negative other than HPI.OBJECTIVE:BP 124/80 Pulse 86 Temp 36.9 ?C (98.4 ?F) (Tympanic) Resp 16 Wt75.7 kg (166 lb 12.8 oz) BMI 30.51 kg/[id number] Well appearing, alert, in no acute distress, well-hydrated,well nourished.EYES PERRLA MICAH, right conjunctiva mildly injected with tearing. Mildedema of upper eyelid. No periorbital edema or erythema. EOMs intact. andsclera normal.EARS External ears normal, canals clear. Left TM normal. Right TM bulgingand erythematous.NOSE/SINUS Nares normal. Septum midline. Mucosa normal. No drainage orsinus tenderness.THROAT mild erythema, no exudate.uvula midlineNECK Supple, no adenopathy;HEART RRR with normal S1 and S2LUNG clear to auscultation, no wheezing, rhonchi, rales. + cough present.ASSESSMENT/PLAN:1. Sore throat - ICD9: 462, ICD10: J02.9- Rapid Strep negative in the office today and throat culture sent- Discussed supportive care treatment with fluids, rest and analgesia.- The patient may also use OTC cough and cold meds as needed, warm saltwater gargles, throat lozenges and/or OTC throat spray as needed and nasalsaline gtts and suction prn.- The patient should follow up in 3-5 days if symptoms persist or worsen- Call back if drooling, increased temperature, symptoms of dehydrationand/or still sick in one week- RAPID STREP TEST B/O- GROUP A STREPTOCOCCUS BY PCR- CIPROFLOXACIN 0.3 % EYE DROPS- CEFDINIR 300 MG CAPSULEReviewed red flags and when to seek care sooner in ERThe patient indicates understanding of these issues and agrees with theplan.ARIAN Haq-C10/06/2016 cnov on 2017-02-01 CNOV Office Visit Normal 02-01-2017 Viktor and ([facility]) --------PRISCILAAVTAR Zheng instacy S ([id number]) 1970 FDat e Time Provider Dihojwgzke47/3/17 7:30 PM VANIA CHRISTIANSON) WSTR Cayetano yusuf During your visit today, we recorded the following information about you: Temperature Pulse Respiration (32851) Blood pressure 98.4 degrees 86/minute 16/minute 124/80 Weight 75.7 kgBernadebrent Christianson PA-C 02/01/2017 8:08 PM Kdegiv2602/01/2017Patie nt presents with:Sore Throat: x 2 daysEarache: (right) ear x 2 daysCough: x 2 daysFatigue: x 2 daysbodyach es: x 2 daysSUBJECTIVE: This is a 46 year old that is here today for Complaint(s) of coughand con gestion x 2 days. + sinus pain and pressure. Notes cough. Fatigue andbody aches associated. + sore thr oat, son tx for strep last . alosmention right ear pain x 2 days. Denies fever/chills, SOB, wh eezing. Notessome eye watering on the right side. Sinus pressure is worse on the rightside. Denies fever/ chills, halos, vision changes, contact lenses, nausea,vomiting, hx of cluster HAs.PAST MEDICAL HISTORYDiag nosis Date- Hyperlipemia- HypertensionALLERGIES Bees; Benadryl [Diphenhydramine Hcl]; Lacto se; PenicillinsMEDICATIONSCurrent Outpatient Prescriptions:Hydrochlorothiazide 12.5 mg capsule Take 12.5 mg by mouth once daily.cyanocobalamin (VITAMIN B-12) 1,000 mcg tab Take 1,000 mcg by mouth once daily.KEARA MIN E,DL-ALPHA TOCOPHEROL, (VITAMIN E, BULK, MISC) once daily.pyridoxine (VITAMIN B-6) 100 mg tablet Take 100 mg by mouth once daily.NORGESTIMATE- ETHINYL ESTRADIOL (ORTHO TRI-CYCLEN, 28, ORAL) Take b y mouth.codeine-guaiFENesin (ROBITUSSIN AC) 10-100 mg/5 mL syrup Take 5-10 mL by mouthfour times daily as needed for Cough. May cause drowsiness.codeine- guaiFENesin (ROBITUSSIN AC) 10-100 mg/5 mL syrup Take 5- 10 mL by mouthfour times daily as needed for Cough. May cause drowsiness.gemfibrozil (LOPI D) 600 mg tablet Take 600 mg by mouth twice daily beforemeals.No current facility-administered medica tions for this visit.SOCIAL HISTORYSocial History Marital status: Spouse name: Years of educat ion: Number of children:Social History Main Topics Smoking status: Never Smoker Alcohol use: No Drug use: NoREVIEW OF SYSTEMSAll other reviewed and negative other than HPI.OBJECTIVE:BP 124/80 Pu lse 86 Temp 36.9 ?C (98.4 ?F) (Tympanic) Resp 16 Wt 75.7 kg(166 lb 12.8 oz) BMI 30.51 kg/[id number] NCE Well appearing, alert, in no acute distress, well-hydrated, wellnourished.EYES PERRLA BI L, right conjunctiva mildly injected with tearing. Mild edema ofupper eyelid. No periorbital edema or eryt laurence. EOMs intact. and sclera normal.EARS External ears normal, canals clear. Left TM normal. Right TM bul ging anderythematous.NOSE/SINUS Nares normal. Septum midline. Mucosa normal. No drainage or sinustenderne ss.THROAT mild erythema, no exudate.uvula midlineNECK Supple, no adenopathy;HEART RRR with no rmal S1 and S2LUNG clear to auscultation, no wheezing, rhonchi, rales. + cough present.ASSESSMENT/PLAN:1. S ore throat - ICD9: 462, ICD10: J02.9- Rapid Strep negative in the office today and throat culture sent- Dis cussed supportive care treatment with fluids, rest and analgesia.- The patient may also use OTC cough and c old meds as needed, warm salt watergargles, throat lozenges and/or OTC throat spray as needed and nasal sa linegtts and suction prn.- The patient should follow up in 3-5 days if symptoms persist or worsen- Call back if drooling, increased temperature, symptoms of dehydration and/orstill sick in one week - RAPID STREP TEST B/O- GROUP A STREPTOCOCCUS BY PCR- CIPROFLOXACIN 0.3 % EYE DROPS- CEFDINIR 300 MG CAPSU LEReviewed red flags and when to seek care sooner in ERThe patient indicates understanding of these issue s and agrees with the plan.ARIAN Haq- 02/01/2017Referring Provider: SELF [200]Allergies As of Da te: 02/01/2017 Noted Allergy ReactionBEES 10/30/2015 10 - Anaphylaxis Comments: Has epi Nahed Mcclain (DIPHENHYDRAMINE HCL) 10/27/2007 Comments: Black outLACTOSE 10/27/2007PENICILLINS 2007 4 - HivesDate Reviewed: 02/01/2017Reviewed by: Dieter Puentes Search Engine Optimization Manager - Fully AssessedReason for Visit: So re Throat [200] Cmt: x 2 days Earache [243] Cmt: (right) ear x 2 days Cough [28] Cmt: x 2 days Fatigue [ 46] Cmt: x 2 days bodyaches [Other] Cmt: x 2 daysReason For Visit History RecordedPrimary Visit Diagno sis:Sore throat [J02.9]Order(s):RAPID STREP TEST B/O [[id number]] Order #: [id number] GROUP A STREPTOCO CCUS BY PCR [SQGASPCR] Order #: [id number] ciprofloxacin HCl (CILOXAN) 0.3 % ophthalmic solutionUse 1 Thomas p in the right eye four times daily for 7 days.Disp: 1 BottleRfl: 0 cefdinir (OMNICEF) 300 mg capsuleTake 1 capsule by mouth twice daily for 10 days.Disp: 20 capsuleRfl: 0Prescriptions as of 017 Sig: HYDROCHLOROTHIAZIDE 12.5 MG C* Take 12.5 mg by mouth once da* CYANOCOBALAMIN (VIT B-12) 1, 0* Take 1,000 mcg by mouth once * VITAMIN E (BULK) MISC once daily. PYRIDOXINE (VITAMIN B6) 100 M* Take 100 mg by mouth once twila* ORTHO TRI-CYCLEN (28) ORAL Take by mouth. CIPROFLOXACIN 0.3 % EYE DROPS Use 1 Drop i n the right eye f* CEFDINIR 300 MG CAPSULE Take 1 capsule by mouth twice* CODEINE 10 MG-GUAIFENESIN 10 0* Take 5-10 mL by mouth four ti* CODEINE 10 MG- GUAIFENESIN 100* Take 5-10 mL by mouth four ti* GEMFIBROZI L 600 MG TABLET Take 600 mg by mouth twice da*Medication notes this encounter CODEINE 10 MG-GUAIFENESIN 10 0 MG/5 ML ORAL LIQUID >> Dieternallely Puentes Cma 02/01/2017 7:32 PM >> GAYATHRI DIETER WARNER Feb 01, 2017 7:32 PM Completed GEMFIBROZIL 600 MG TABLET >> Dieternallely Puentes Search Engine Optimization Manager 02/01/2017 7:32 PM >> GAYATHRI DIETER WARNER Feb 01, 2017 7:32 PM CompletedProblem List As Of Date: 02/01/2017(None)Prescription s ordered this encounter Disp Refills Start End CIPROFLOXACIN 0.3 % EYE DROPS 1 Momo* 0 02/01/2017 7 Route: RIGHT EYE Sig: Use 1 Drop in the right eye four times daily for 7 days. CEFDINIR 300 MG CAPSUL E 20 c* 0 02/01/2017 02/11/2017 Route: ORAL Sig: Take 1 capsule by mouth twice daily for 10 days. Status:Closed by VANIA CHRISTIANSON PA-C on 02/01/17 Encounters Date Type Reason Provider Location 02-01-2017 - 02-01-[id number] Purpose Family History No Family History Records Found Advance Directives No Advanced Directives Records Found Additional Source Comments FOR RECORDS PERTAINING TO PATIENTS WHO ARE OR HAVE BEEN ENROLLED IN A CHEMICAL DEPENDENCY/SUBSTANCE ABUSE PROGRAM, SOME INFORMATION MAY BE OMITTED. This clinical summary was aggregated from multiple sources. Caution should be exercised in using it in the provision of clinical care. This summary normalizes information from multiple sources, and as a consequence, information in this document may materially changethe coding, format and clinical context of patient data. In addition, data may be omittedin some cases. CLINICAL DECISIONS SHOULD BE BASED ON THE PRIMARY CLINICAL RECORDS. [facility] provides no warranty or guarantee of the accuracy or completeness of information in this document. UNRECOGNIZED CONTENT PROVIDED BELOW FOR UNRECOGNIZED SECTION INFORMATION SOURCE DATE CREATED AUTHOR AUTHOR'S ORGANIZATIO N 10/26/2017 [facility] Cayetano yusuf
== END ==
PROVIDERS: PCP Family Medicine; Referring Provider Obstetrics & Gynecology; Visit Provider Obstetrics & Gynecology
DX: Z12.31 Encounter for screening mammogram for malignant neoplasm of breast (principal)
CPT/HCPCS: 77063; 77067

== ENCOUNTER → 2020-06-17 09:47 | Outpatient (CLI) | payer BC, SELFPAY ==
[2018-09-04 10:52] VITALS: BMI 31.6
[2020-06-17 10:55] LABS: Absolute Lymphocyte Count 1.34 X10^3/uL (0.83-4.51); Absolute Neutrophil Count 2.5 X10^3/uL (2.0-7.7); Basophil# 0.02 X10^3/uL; Basophil% 0.5 % (0-1); Eosinophil# 0.08 X10^3/uL; Eosinophils% 1.9 % (0-5); Hematocrit 38.4 % (37-47); Hemoglobin 12.6 g/dL (12.0-15.0); Lymphocyte # 1.34 X10^3/ul (4.0); Lymphocyte % 31.6 % (19-41); Mean Corp Hgb Conc 32.8 g/dL (32-36); Mean Corpuscular Hgb 29.4 pg (27.0-32.0); Mean Corpuscular Volume 89.7 fL (81-99); Mean Platelet Vol. 10.1 fl (6.2-12.0); Monocyte# 0.28 X10^3/uL; Monocyte% 6.6 % (0-10); NRBC Flagged by Analyzer 0 % (0-5); Neutrophil # 2.51 X10^3/uL (2.7-7.7); Neutrophil % 59.2 % (47-70); Platelet Count 271 K/mm3 (150-450); RBC Distribution Width CV 12.4 % (11.6-14.6); RBC Distribution Width SD 40.4 fl (35.1-43.9); Red Blood Count 4.28 M/mm3 (4.2-5.4); White Blood Count 4.2 K/mm3 (4.4-11.0)
[2020-06-17 11:12] LABS: Hemoglobin A1c 6.3 % (3.8-5.6)
[2020-06-17 12:37] LABS: ALB/GLOB Ratio 0.9 RATIO (0.9-2.4); AST(SGOT) 13 U/L (15-37); Alanine Aminotransfer ALT/SGPT 22 U/L (13-56); Albumin, Serum 3.2 g/dL (3.2-5.0); Alkaline Phosphatase 73 U/L (45-117); Anion Gap 9 (5-15); BUN 15 mg/dL (7-18); BUN/Creat Ratio 23.4 RATIO (10-20); Calcium,Total 8.6 mg/dL (8.5-10.1); Chloride 102 mmol/L (98-107); Cholesterol 259 mg/dL (200); Creatinine, Serum 0.64 mg/dL (0.55-1.02); EST Glomerular Filtration Rate 104 mL/min (>60); Est Glom Filt Rate - Afr Amer 126 mL/min (>60); Globulin 3.6 g/dL (2.2-4.2); Glucose 144 mg/dL (74-106); High Density Lipoprotein 24 mg/dL; Potassium 4.3 mmol/L (3.5-5.1); Protein, Total 6.8 g/dL (6.4-8.2); Sodium Level 135 mmol/L (136-145); Thyroid Stim Hormone (TSH) 0.74 uIU/mL (0.358-3.74); Triglycerides 1836 mg/dL
== END ==
PROVIDERS: PCP Family Medicine; Referring Provider Family Medicine; Visit Provider Family Medicine
DX: E78.5 Hyperlipidemia, unspecified (principal); R73.9 Hyperglycemia, unspecified; Z51.81 Encounter for therapeutic drug level monitoring; R53.83 Other fatigue; Z86.32 Personal history of gestational diabetes
CPT/HCPCS: 36415; 80053; 80061; 83036; 84443; 85025

== ENCOUNTER → 2020-06-25 11:09 | Outpatient (CLI) | payer BC, SELFPAY ==
[2018-09-04 10:52] VITALS: BMI 31.6
--- NOTE | 2020-06-25 11:12 | RAD_ITS ---
STUDY: X-RAY - RIGHT SHOULDER REASON FOR EXAM: Right shoulder pain and loss of range of motion. TECHNIQUE: 4 view(s) of the shoulder. COMPARISON: None. FINDINGS: Normal glenohumeral articulation. Normal acromioclavicular joint. Normal acromion. Normal humeral head and visualized proximal humerus. The soft tissue structures are unremarkable. Normal visualized pulmonary apex. RAD/Shoulder min 2 Views IMPRESSION: Normal x-ray examination of the right shoulder. Electronically Signed: Nate Mccallum MD at 11:55 EST Tel , Service support ,
== END ==
PROVIDERS: PCP Family Medicine; Referring Provider Family Medicine; Visit Provider Family Medicine
DX: M75.81 Other shoulder lesions, right shoulder (principal)
CPT/HCPCS: 73030

== ENCOUNTER 2020-07-22 15:00 | Outpatient (RCR) | payer BC, SELFPAY ==
[2018-09-04 10:52] VITALS: BMI 31.6
--- NOTE | 2020-06-27 16:03 | HP.PTEVAL ---
Patient's Visit Information AVTAR FRANCOIS is a 49 year old F referred to Physical Therapy by Dr. Bree Hamilton DO with a diagnosis of ROTATOR CUFF TENDONITIS. Date of Evaluation: 06/27/20 Physical Therapist: Radu Robertson, PT, Cert MDT, OCS - Visit Plan Frequency: 2x /Week Duration: 4 Weeks Plan: PT INTERVENTIONS ROM,MANUAL THERAPY G-H MOBS,RTC/SCAPULAR STRENHTHENING. POSTURAL EX'S AND MODLATIES - Subjective This 49 y/o female presents to physical theray with RTC tendonitis . Patient has had right shoulder pain for 7 months which has been progressively worse with lifting. Pain located lateral deltoid referrs to tricep region. Symptom where incidous onset. Patient symptoms decsribed as ache . Patient pain worse [place] activities ,lifting ,reaching behind back . Patient pain affects ADLS' housework tasks . Patient denies paratheisa /tingling. Patient has difficultly sleeping at night. Patient pain affects QOL and function/job demands.Patient seen DR x-rays and recommended PT and overcounter ibuprofrin. VOCATION: Lecturer In Computer Science. SOCIAL: - Pain Right Shoulder Pain Intensity (Out of 10): 0 Pain Intensity Range: 10 Comment: 8/10 with lifting - Objective POSTURE: mild foward posture. NEURO: denies parathesia/tingling. PLALAPTION: unremarkable. AROM: shoulder flexion 120 degrees,abduction 135 degrees in scapation,ER 87 degrees,IR 70 degrees,receah behind back L3. PROM: shoulder flexion/abduction 160 degrees,ER 90 degrees. MMT: RTC 4/5,deltoid 4-/5,scapular strength 3/5. CAPSULAR RESTRICTIO: mild tight - Special Tests R Shoulder Supine Impingement Test - RC Tear: Negative R Shoulder Lift Off Test - Subscapular Tear: Negative R Shoulder Drop Sign - IS Test: Negative R Shoulder Belly Press - SupScap: Negative R Shoulder Neer - Impingement: Positive R Shoulder Kaur Uziel - Impingement: Positive - Goals Goal 1:: Patient to be I with HEP Goal Time Frame: 4-6 Weeks Goal 2:: Patient decrease pain by 70% or > to improve function and ADLS' Goal Time Frame: 4-6 Weeks Goal 3:: Patient to increase AROM shoulder symmtrical to left to improve function with ADL'S and job demands. Goal Time Frame: 4-6 Weeks Goal 4:: Patient to increase quick dash by 10 points or > to improve function Goal Time Frame: 4-6 Weeks Goal 5:: Patient to improve deltoid strength 4/5 to improve function. Goal Time Frame: 4-6 Weeks - Rehabilitation Potential Physical Therapy Diagnosis: This patient has impairment with impingement with capsular restriction with pain affects ADLS,housework tasks ,decrease ROM and mild weakness thus benifit from skilled PT Rehabilitation Potential: Good - Anticipated Interventions Patient/Client Instruction: Educate patient on: Condition, Plan of Care For the Purpose of:: To decrease pain, To increase ROM, To improve muscle performance and motor function, To improve ability to perform ADL's, To increase tolerance to activity/condition/position, To improve ability of physical actions for home/community/work/leisure, To improve health of tissue, To decrease soft tissue restriction, To increase flexibility/ROM, To reduce risk of recurrence Therapeutic Exercise to Include: Strength training, Postural training, Flexibilty training, Active ROM, Scapular Strength/Stabilization For the Purpose of:: To decrease pain, To increase ROM, To improve muscle performance and motor function, To improve ability to perform ADL's, To increase tolerance to activity/condition/position, To improve ability of physical actions for home/community/work/leisure, To improve health of tissue, To decrease soft tissue restriction, To increase flexibility/ROM, To reduce risk of recurrence Manual Therapy Techniques to Include: Mobilization For the Purpose of:: To decrease pain, To increase ROM, To improve nutrient delivery to tissue, To increase oxygenation perfusion, To improve health of tissue, To decrease soft tissue restriction, To increase flexibility/ROM TENS: Yes IF ES: Yes Cryotherapy (ice pack, ice massage): Yes Thermo therapy (hot pack): Yes Ultrasound (thermal/non thermal): Yes For the Purpose of:: To decrease pain, To decrease swelling/inflammation, To improve nutrient delivery to tissue, To increase oxygenation perfusion, To improve health of tissue, To decrease soft tissue restriction Thank you for the opportunity to evaluate your patient. For Medicare and Medicare HMO plans, please review the plan of care and approve it. It will need to be FAXED BACK to us at [phone] for Medicare purposes. For Medicare only, by signing this I certify the plan of care. Please let me know if there are questions or concerns regarding this plan of care. Physician Signature: Date:
--- NOTE | 2020-12-09 13:22 | HP.PT.NRP ---
AVTAR FRANCOIS was seen in my office for initial evaluation on 06/27/20. The following Plan of Care was established for this patient: Initial Frequency: 2x /Week Initial Duration: 4 Weeks Patient/Client Instruction: Educate patient on: Condition, Plan of Care For the Purpose of:: To decrease pain, To increase ROM, To improve muscle performance and motor function, To improve ability to perform ADL's, To increase tolerance to activity/condition/position, To improve ability of physical actions for home/community/work/leisure, To improve health of tissue, To decrease soft tissue restriction, To increase flexibility/ROM, To reduce risk of recurrence Therapeutic Exercise to Include: Strength training, Postural training, Flexibilty training, Active ROM, Scapular Strength/Stabilization For the Purpose of:: To decrease pain, To increase ROM, To improve muscle performance and motor function, To improve ability to perform ADL's, To increase tolerance to activity/condition/position, To improve ability of physical actions for home/community/work/leisure, To improve health of tissue, To decrease soft tissue restriction, To increase flexibility/ROM, To reduce risk of recurrence Manual Therapy Techniques to Include: Mobilization For the Purpose of:: To decrease pain, To increase ROM, To improve nutrient delivery to tissue, To increase oxygenation perfusion, To improve health of tissue, To decrease soft tissue restriction, To increase flexibility/ROM TENS: Yes IF ES: Yes Cryotherapy (ice pack, ice massage): Yes Thermo therapy (hot pack): Yes Ultrasound (thermal/non thermal): Yes For the Purpose of:: To decrease pain, To decrease swelling/inflammation, To improve nutrient delivery to tissue, To increase oxygenation perfusion, To improve health of tissue, To decrease soft tissue restriction This patient was last seen in our office . Pertinent comments regarding their Physical therapy will appear below: Patient seen for PT for RTC tendonitis with RTC/scapular strengthening, and postural ex's ,and is doing well At this point I will be discontinuing this patient from physical therapy. I would be happy to see this patient again in the future if found appropriate by the physician. Thank you! Radu Robertson, PT, Cert MDT, OCS Balance/Gait/Functional tests - Balance/Special Test Scores Quick DASH Score: 0
== END 2020-07-22 19:00 | disposition home or self-care (01) ==
LOC: PT 15:00
PROVIDERS: PCP Family Medicine; Referring Provider Family Medicine; Visit Provider Family Medicine
DX: M75.81 Other shoulder lesions, right shoulder (principal)
CPT/HCPCS: 97110; 97161

== ENCOUNTER → 2021-02-09 08:42 | Outpatient (CLI) | payer BC, SELFPAY ==
[2021-02-09 11:20] LABS: Cholesterol 255 mg/dL (200); High Density Lipoprotein 24 mg/dL; Triglycerides 1472 mg/dL
== END ==
PROVIDERS: PCP Family Medicine; Visit Provider Family Medicine
DX: E78.1 Pure hyperglyceridemia (principal)
CPT/HCPCS: 36415; 80061

== ENCOUNTER → 2021-02-18 15:45 | Outpatient (CLI) | payer BC, SELFPAY ==
--- NOTE | 2021-02-18 15:47 | BI_ITS ---
MAMMOGRAPHY - BILATERAL SCREENING REASON FOR EXAM: Female, 50 years old. Routine annual screening examination. PERTINENT HISTORY: Aunt with breast cancer. TECHNIQUE: Digital bilateral breast lisandra (3D mammographic acquisition) in the CC and MLO projections. 2-D mediolateral oblique (MLO) and craniocaudad (CC) views of both breasts were obtained. CAD: Full Field Digital Mammography with Computer Added Detection was performed. COMPARISON: Comparison is made with prior study dated 10/16/2019 and 04/14/2018. FINDINGS: Breast Composition: The breasts are heterogeneously dense, which may obscure small masses. There are no dominant masses or suspicious calcifications. Stable small benign-appearing bilateral axillary lymph nodes. No other significant abnormalities are identified. There has been no significant change since the prior study. BI/SCRN MAMM (CAD)W/LISANDRA BILAT IMPRESSION: Stable bilateral screening mammogram. Yearly follow-up mammogram recommended. (A) ASSESSMENT CATEGORY: BIRADS Category 1: Negative. A letter regarding these results will be sent to the patient by the facility within 30 days. Approximately 10% of breast cancers are not detected by mammography. A normal mammogram should not delay biopsy of a clinically suspicious abnormality. [id number] Electronically Signed: Theron Wall MD at 8:46 EDT , Service support ,
== END ==
PROVIDERS: PCP Family Medicine; Visit Provider Obstetrics & Gynecology
DX: Z12.31 Encounter for screening mammogram for malignant neoplasm of breast (principal); Z80.3 Family history of malignant neoplasm of breast
CPT/HCPCS: 77063; 77067

== ENCOUNTER 2021-03-03 05:34 | Day surgery (SDC) | payer BC, SELFPAY ==
[2021-03-03 05:49] VITALS: BP 153/101; PULSE 81; RESP 18; TEMP 36.6; O2SAT 99; BMI 32.1
--- NOTE | 2021-03-03 06:09 | HP.PCM_ITS ---
History and Physical Date of Admission: 03/03/21 Intake Visit Reasons: CSCOPE, CHANGE IN BOWELS Chief Complaint: change in bowel habits Supervisor Advice Required: No Is patient in pain?: No Allergies bee venom protein (honey bee) Allergy (Verified 02/23/21 11:17) Anaphylaxis lactose Allergy (Verified 02/23/21 11:17) Food Allergy Penicillins [PCN] Allergy (Verified 02/23/21 11:17) Hives diphenhydramine HCl [From Benadryl] Adverse Reaction (Verified 02/23/21 11:17) Other Medications hydrochlorothiazide 12.5 mg PO DAILY 04/03/15 [History Confirmed 02/23/21] fluoxetine 20 mg PO QHS 08/28/18 [History Confirmed 02/23/21] docusate sodium 100 mg PO BID PRN PRN #60 cap 09/04/18 [Rx Confirmed 02/23/21] estradiol 2 mg PO DAILY #100 tab 09/04/18 [Rx Confirmed 02/23/21] minerals tab PO 02/23/21 [History Confirmed 02/23/21] Is last menstrual period known: No Post menopausal: Yes Patient : No PFSH Medical History (Updated 02/23/21 @ 11:12 by Veronica Lovelace) Anxiety and depression Cardiac murmur External hemorrhoid GERD (gastroesophageal reflux disease) Gestational diabetes HTN (hypertension) Osteoarthritis Surgical History (Updated 02/23/21 @ 11:12 by Veronica Lovelace) History of 2 sections History of total hysterectomy Family History (Updated 02/23/21 @ 11:13 by Veronica Lovelace) Father Hypertension Hypercholesteremia Social History Smoking Status: Never smoker HPI HPI HPI: AVTAR FRANCOIS, is a 50 F who presents to the office today for surgical consultation regarding a screening colonoscopy. Her laboratory as of June 20, 2020 showed a white count of 4.2 with a hemoglobin 12.6 and hematocrit 38.4 and a platelet count of 271,000. Glucose was 144. BUN 15 creatinine 0.64. Her cholesterol is 259 with triglycerides of rise of 1835. HDL was 24. LDL and VLDL could not be calculated. Hemoglobin A1c was 6.3 She reminds me that I assisted her with a screening colonoscopy within the past several months. He did well with that. She has never had a previous colonoscopy. No fever chills sweats. She has not had COVID-19. She has been vaccinated. Family history is negative for colon polyps or colon cancer. She has noted some nondescript right lower quadrant discomfort. She notes bilateral vastus lateralis discomfort of her hips. She has not had any weight loss. She notes change of bowel habits with occasionally soupy bowel movements and leakage its been going on for approximately 6 months. ROS General General: No weight change, appetite, fatigue, colon cancer, breast cancer or weakness HEENT HEENT: No difficulty swallowing, eye injury, eye surgery, swollen glands or hoarseness Endo Endocrine: Yes diabetes mellitus; No thyroid disease, thyroid cancer, Hair loss, heat intolerance or cold intolerance Cardio Cardiovascular: Yes murmur and high blood pressure; No pacemaker, heart disease, atrial fibrillation, heart attack, heart stent, palpitations, shortness of breat with exertion or chest pain Psych Psychiatric: Yes depression and anxiety; No hearing voices Resp Respiratory: Yes shortness of breath, No sleep apnea, No cough, No COPD, No asthma, No emphysema and No wheezing Gastro Gastrointestinal: Yes abdominal pain, No nausea or vomiting, Yes diarrhea, No constipation, No blood in stool, Yes acid reflux, Yes hemorrhoids, No ulcers, No gallbladder problem and Yes black,tarry stools Shaun Hematologic: No blood thinners, No blood disorders, No bleeding, No anemia and No blood clots Neuro Neurologic: No weakness Exam Const General: cooperative, healthy appearing, comfortable and no acute distress Nutritional Appearance: overweight Orientation: alert and awake [facility] Head: normal to inspection Neck Neck: normal visual inspection Resp Effort & Inspection: normal respiratory effort Auscultation: clear to auscultation bilaterally Cardio Rate: regular rate Rhythm: regular rhythm GI Palpation: soft and no hepatosplenomegaly Auscultation: normal bowel sounds Musc Cervical Spine: normal cervical lordosis Neuro General: patient alert and patient awake Extrem General: no calf tenderness Psych Appearance: grossly normal COVID (Procedure Consent) Procedure Criteria Procedure Criteria: Yes Elective The surgeon/proceduralist and patient have discussed in detail the risk of exposure to and/or potential harm posed by the COVID-19 virus with having a surgery/procedure at this time versus the risk of delaying the surgery/procedure. It is not possible to know either the risk of delaying the surgery or procedure or chance of getting an infection with perfect accuracy, but a joint decision was made between the patient and the surgeon/proceduralist to proceed at this time with the scheduled surgery/procedure as indicated on the consent form. Assessment and Plan Assessment and Plan (1) Change in bowel habit: Status: Acute Plan - Dr. Bernardo Nuñez MD: Change of bowel habit. Hypertriglyceridemia. Hypercholesterolemia. History of COVID-19 vaccination She also has an appointment scheduled with Dr. Cristofer Maya her [employer] SAL[employer] with which I concur I recommended the patient a colonoscopy with possible biopsy or polypectomy as indicated. She is aware of technique, benefit, risk of alternatives. She has had an opportunity to ask and have questions answered. I anticipate monitored anesthesia care. We will strongly consider random colonic biopsies. She has had an opportunity to ask and have questions answered. We will schedule and expedite her care. Copy: Dr. Bree Hamilton and Dr. Cristofer Nuñez M.D., F.A.C.S. I have re-examined the patient. There are no clinical changes since date of exam.
[2021-03-03] MEDS: Lactated Ringers 1,000 ML 100 ML IV (06:11)
--- NOTE | 2021-03-03 06:30 | COLBX_PTH ---
PATIENT: AVTAR DAVIS LOC: EN U#:[id number] AGE/SX: 50/F ROOM: RE03/03/[address]: Dr. Bernardo Nuñez MD : 1970 BED: DIS: 03/03/2021 SPEC #: [id number] RECD: 03/03/21 10:45 STATUS: FARIBA FINN #: [id number] KENYON: 03/03/21 06:[address]: Bernardo Nuñez DEPT: SURGICAL PATHOLOGY RECD BY: Jessica Haywood ENTERED: 03/03/21 11:38 SP TYPE: COLON BX OTHR DR: Dr. Bree Hamilton DO Tissues: COLON BIOPSY Procedures: Surgery Specimen Level IV HEADER OPERATION: Colonoscopy (MAC) PRE-OP DIAGNOSIS: Change in bowel habit TISSUE SUBMITTED: Random colonic biopsy MICROSCOPIC DIAGNOSIS Colon, random biopsy: Fragments of colonic mucosa, no pathologic diagnosis. LAITH:adrian 03/04/2021 MICROSCOPIC DESCRIPTION Slides are reviewed. GROSS DESCRIPTION Received in fixative is one container labeled with the patient's name and designated random colonic biopsy. The specimen consists of multiple irregular fragments of light osorio soft tissue that in aggregate measure 2 x 0.8 x 0.1 cm. The specimen is totally submitted in one cassette. / SJ:rg 03/03/21 TC:4 CPT: 57349
[2021-03-03 06:50] VITALS: BP 135/80; BP 153/101; PULSE 74; RESP 16; TEMP 36.3; O2SAT 97
--- NOTE | 2021-03-03 06:51 | OP.COLON_ITS ---
Patient Name: Michelle Ramos Procedure Date: 03/03/2021 6:18 AM Date of : 1970 Age: 50 Procedure: Colonoscopy Indications: Diarrhea Providers: Bernardo Nuñez MD Referring MD: Bree Hamilton Medicines: See the Anesthesia note for documentation of the administered medications Patient Profile: Last Colonoscopy: none. The patient's first colonoscopy is today. Complications: No immediate complications. Procedure: Pre-Anesthesia Assessment: - Prior to the procedure, a History and Physical was performed, and patient medications and allergies were reviewed. The patient's tolerance of previous anesthesia was also reviewed. The risks and benefits of the procedure and the sedation options and risks were discussed with the patient. All questions were answered, and informed consent was obtained. Prior Anticoagulants: The patient has taken no previous anticoagulant or antiplatelet agents. ASA Grade Assessment: II - A patient with mild systemic disease. After reviewing the risks and benefits, the patient was deemed in satisfactory condition to undergo the procedure. After I obtained informed consent, the scope was passed under direct vision. Throughout the procedure, the patient's blood pressure, pulse, and oxygen saturations were monitored continuously. The colonoscope was introduced through the anus and advanced to the cecum, identified by appendiceal orifice and ileocecal valve. The colonoscopy was performed without difficulty. The patient tolerated the procedure well. The quality of the bowel preparation was good. The ileocecal valve and the appendiceal orifice were photographed. Scope In: 6:31:48 AM Scope Withdrawal Time 0 hours 10 minutes 42 seconds Scope Out: 6:46:19 AM Total Procedure Duration Time 0 hours 14 minutes 31 seconds Findings: Hemorrhoids were found on perianal exam. The colon (entire examined portion) appeared normal. Biopsies for histology were taken with a cold forceps from the entire colon for evaluation of microscopic colitis. Impression: - Hemorrhoids found on perianal exam. - The entire examined colon is normal. Biopsied. Recommendation: - Discharge patient to home. - Resume previous diet. - Continue present medications. - Repeat colonoscopy in 10 years for screening purposes. - Telephone my office for pathology results in 1 week. Procedure Code(s): --- Professional --- 47343, Colonoscopy, flexible; with biopsy, single or multiple Diagnosis Code(s): --- Professional --- K64.9, Unspecified hemorrhoids R19.7, Diarrhea, unspecified CPT copyright 2017 [employer]. All rights reserved. The codes documented in this report are preliminary and upon etl data architect review may be revised to meet current compliance requirements. Bernardo Nuñez MD 03/03/2021 6:51:08 AM This report has been signed electronically. Number of Addenda: 0 Note Initiated On: 03/03/2021 6:18 AM
--- NOTE | 2021-03-03 06:51 | OP.CCLET_ITS ---
03/03/2021 Bree Hamilton [address] [place] [address] Re : Colonoscopy procedure for Michelle Maria Rachel Dear Dr. Hamilton This procedure was performed on Wednesday, March 03, 2021. My impressions and recommendations are as follows: Impressions : - Hemorrhoids found on perianal exam. - The entire examined colon is normal. Biopsied. Recommendations : - Discharge patient to home. - Resume previous diet. - Continue present medications. - Repeat colonoscopy in 10 years for screening purposes. - Telephone my office for pathology results in 1 week. My findings are described in the full procedure note, which is enclosed. If I can be of further assistance, please feel free to contact me at Doctor phone number(s): Work: . Sincerely, Bernardo Nuñez MD 03/03/2021 6:51:08 AM This report has been signed electronically.
[2021-03-03 06:55] VITALS: BP 137/84; BP 153/101; PULSE 71; RESP 16; O2SAT 96
[2021-03-03 07:00] VITALS: BP 143/84; BP 153/101; PULSE 72; RESP 16; O2SAT 99
[2021-03-03 07:05] VITALS: BP 136/88; BP 153/101; PULSE 70; RESP 16; TEMP 36.4; O2SAT 96
[2021-03-03 07:29] VITALS: BP 153/101
== END 2021-03-03 08:14 | disposition home or self-care (01) ==
LOC: EN 05:35 → AC 05:37
PROVIDERS: PCP Family Medicine; Referring Provider Family Medicine; Visit Provider Surgery
PROC: 0DJD8ZZ Inspection of Lower Intestinal Tract, Via Natural or Artificial Opening Endoscopic (ICD-10-PCS; CPT 45378; principal; 2021-03-03 06:25)
DX: K64.9 Unspecified hemorrhoids (principal); R19.7 Diarrhea, unspecified; R19.4 Change in bowel habit; I10 Essential (primary) hypertension; E78.00 Pure hypercholesterolemia, unspecified; M19.90 Unspecified osteoarthritis, unspecified site; F32.A Depression, unspecified; F41.9 Anxiety disorder, unspecified; Z79.899 Other long term (current) drug therapy
CPT/HCPCS: 45380; 88305; J7120; J2405

== ENCOUNTER → 2021-04-09 08:29 | Outpatient (CLI) | payer BC, SELFPAY ==
--- NOTE | 2021-04-09 14:57 | BD_ITS ---
STUDY: DUAL ENERGY X-RAY ABSORPTIOMETRY / DXA REASON FOR EXAM: Female, 50 years old. Z780. The patient is postmenopausal. TECHNIQUE: Bone Mineral Density (BMD) measurements of lumbar spine and bilateral hips were obtained. COMPARISON: None. FINDINGS: Lumbar Spine (L1-L4): g/cm2 (1.170) / T-score (1.1) / Z-score (1.9) Findings are suggestive of normal bone density with a low fracture risk. Left Femur Total: g/cm2 (1.040) / T-score (0.8) / Z-score (1.3) Left Femoral Neck: g/cm2 (0.900) / T-score (0.5) / Z-score (1.3) Right Femur Total: g/cm2 (1.051) / T-score (0.9) / Z-score (1.4) Right Femoral Neck: g/cm2 (0.954) / T-score (0.9) / Z-score (1.8) BD/Dexa Bone Density Study IMPRESSION: The patient is considered normal as outlined below according to World [employer] Organization (WHO) criteria with a low fracture risk. Reference Information: The T-score is the number of standard deviations above or below the standard which is normal for young adults at their peak bone mineral density. The World Health Organization (WHO) interprets the T-scores as follows: Above -1 Normal bone density Between -1 and -2.5 Osteopenia Equal to / or below -2.5 Osteoporosis As a practical clinical guideline, osteopenia may be graded as follows: Mild -1 through -1.5 Moderate -1.6 through -2.0 Severe -2.1 through -2.4 The Z-score is the number of standard deviations above or below age-matched controls. A Z-score of less than -1.5 would be considered abnormal. References: 1. NIH Osteoporosis and Related Bone Diseases www osteo.org 2. International Society for Clinical Densitometry www iscd.org 3. National Osteoporosis Foundation www nof.org Electronically Signed: Theron Wall MD at 14:10 EST , Service support ,
== END ==
PROVIDERS: PCP Family Medicine; Referring Provider Family Medicine; Visit Provider Family Medicine
DX: Z78.0 Asymptomatic menopausal state (principal)
CPT/HCPCS: 77080

== ENCOUNTER → 2022-03-09 | Outpatient (CLI) | payer BC, SELFPAY ==
[2022-03-16 15:28] LABS: HPV APTIMA, High Risk Negative (Negative)
== END | disposition home or self-care (01) ==
LOC: LABSPEC 14:10
PROVIDERS: PCP Family Medicine; Visit Provider Obstetrics & Gynecology
DX: Z12.72 Encounter for screening for malignant neoplasm of vagina (principal)
CPT/HCPCS: 87624; 88175; G0145

== ENCOUNTER → 2022-04-20 | Outpatient (CLI) | payer BC, SELFPAY ==
[2022-04-20 11:41] LABS: Microalbumin,Random Urine 34.7 mg/L (NO RANGE EST.); Microalbumin:Creatinine Ratio 22.5 mg/g CRE (<30 mg/g CRE)
[2022-04-20 11:46] LABS: Vitamin D,25 Hydroxy 15.6 ng/mL
[2022-04-20 11:55] LABS: ALB/GLOB Ratio 0.8 RATIO (0.9-2.4); AST(SGOT) 14 U/L (15-37); Alanine Aminotransfer ALT/SGPT 23 U/L (13-56); Albumin, Serum 3.4 g/dL (3.2-5.0); Alkaline Phosphatase 84 U/L (45-117); Anion Gap 5 (5-15); BUN 14 mg/dL (7-18); BUN/Creat Ratio 20.3 RATIO (10-20); Calcium,Total 9.2 mg/dL (8.5-10.1); Chloride 105 mmol/L (98-107); Cholesterol 259 mg/dL (200); Creatinine, Serum 0.69 mg/dL (0.55-1.02); EST Glomerular Filtration Rate 95 mL/min (>60); Est Glom Filt Rate - Afr Amer 115 mL/min (>60); Globulin 4.2 g/dL (2.2-4.2); Glucose 180 mg/dL (74-106); High Density Lipoprotein 33 mg/dL; Potassium 4.3 mmol/L (3.5-5.1); Protein, Total 7.6 g/dL (6.4-8.2); Sodium Level 138 mmol/L (136-145); Thyroid Stim Hormone (TSH) 1.08 uIU/mL (0.358-3.74); Triglycerides 985 mg/dL
== END | disposition home or self-care (01) ==
LOC: LAB 10:56
PROVIDERS: PCP Family Medicine; Referring Provider Internal Medicine Endocrinology, Diabetes & Metabolism; Visit Provider Internal Medicine Endocrinology, Diabetes & Metabolism
DX: I10 Essential (primary) hypertension (principal); E11.9 Type 2 diabetes mellitus without complications; E78.2 Mixed hyperlipidemia; E55.9 Vitamin D deficiency, unspecified
CPT/HCPCS: 36415; 80053; 80061; 82043; 82306; 82570; 84443

== ENCOUNTER 2022-06-10 07:10 | Emergency (ER) | payer BC, SELFPAY ==
[2022-06-10 07:11] VITALS: BP 216/110; PULSE 84; RESP 17; TEMP 35.6; O2SAT 100; BMI 32.1
--- NOTE | 2022-06-10 07:29 | EDS_ITS ---
HPI History of Present Illness Chief Complaint: Hypertension Informant: patient Onset/Context/Timing Onset: Today Context: Sudden Onset Timing: Continuous Quality: Sharp, pressure Location: Behind her eyes Worsened by: Light Relieved by: Cooling pad, dark room, and pushing on her eyes Narrative Narrative: Patient presents with headache that began this morning. Patient states she woke up at 4:00 and had a headache at that time. Patient states it is behind her eyes. Patient describes the pain as sharp and pressure. Patient states it is worse with light. Patient states she has a history of migraine headaches and this is somewhat similar to that. Patient states that she applied a cooling pad which seemed to help. Patient states it also seems to get better when she pushes on her eyes. Patient also noted her blood pressure was elevated this morning. Patient took 2 hydrochlorothiazide tablets proximately 30 minutes prior to arrival. Patient states she also took some Excedrin Migraine prior to arrival. [facility] Medical History Anxiety and depression Cardiac murmur Diabetes External hemorrhoid GERD (gastroesophageal reflux disease) Gestational diabetes Heart murmur HTN (hypertension) Hypertension Migraine headache Mixed hyperlipidemia Non-smoker Obesity Osteoarthritis Scratches Wears glasses Home Medications estradiol 2 mg tablet 2 mg PO DAILY #100 tabs 09/04/18 [Rx Last Taken Unknown] poqztqy-lfhxthlhmpunq-ivqpkiad 250 mg-250 mg-65 mg tablet (Excedrin Migraine) 1 tab PO ONCE 04/15/22 [History Last Taken Unknown] glucosamine-chondroitin 250 mg-200 mg tablet (Osteo Bi-Flex) 1.5 tab PO QPC 04/15/22 [History Last Taken Unknown] psyllium husk 3.4 gram/5.4 gram oral powder (Metamucil) 1 tsp PO DAILY 04/15/22 [History Last Taken Unknown] Vascepa 1 gram capsule (icosapent ethyl) 2 g PO BID #120 caps 04/23/22 [Rx Last Taken Unknown] lisinopril 40 mg tablet 40 mg PO DAILY #30 tabs 05/11/22 [Rx Last Taken Unknown] Allergy/AdvReac Type Severity Reaction Status Date / Time bee venom protein (honey bee) Allergy Anaphylaxis Verified 06/10/22 07:11 lactose Allergy Food Verified 06/10/22 07:11 Allergy Penicillins [PCN] Allergy Hives Verified 06/10/22 07:11 diphenhydramine HCl AdvReac BLACK OUT Verified 06/10/22 07:11 [From Benadryl] Family History Father Hypertension Hypercholesteremia Surgical History History of 2 sections History of total hysterectomy Social History Smoking Status: Never smoker ROS ROS ED Constitutional Constitutional ED: Denies chills or fever(s) Eyes Eyes: Denies blurry vision or change in vision ENT ENT ED: Denies rhinorrhea or sore throat Cardiovascular Cardiovascular: Denies chest pain or palpitations Respiratory/Chest Respiratory/Chest: Denies cough or dyspnea Gastrointestinal Gastrointestinal: Reports nausea; Denies vomiting Genitourinary Genitourinary ED: Denies dysuria or hematuria Musculoskeletal Musculoskeletal: Denies back pain or neck pain Integumentary Reports rash; Denies abscess Neurologic Neurologic: Reports headache(s); Denies weakness Allergic/Immunologic Allergic/Immunologic ED: Denies mouth swelling or urticaria EXAM Physical Exam Const Vital Signs: 06/10/22 07:11 06/10/22 08:49 06/10/22 10:05 Temperature 96.1 F L Temperature Source Temporal Pulse Rate 84 68 68 Respiratory Rate 17 16 16 Blood Pressure 216/110 H 162/87 H 156/90 H Blood Pressure Mean 145 112 112 Pulse Ox 100 99 99 Oxygen Delivery Method Room Air Room Air Room Air Positive well nourished, well developed and obese General Appearance ED: well developed and NAD Nutritional Appearance: obese HEENT Reports moist mucous membranes Neck supple and no JVD Resp normal respiratory effort and clear to auscultation bilaterally Cardio regular rate, regular rhythm and no murmurs GI normal to inspection, nondistended, normoactive bowel sounds and non-tender Palpation: soft Extremity normal to inspection General Extremety ED: Negative for edema or tenderness General Extremity: Negative for edema Neuro oriented x3, CN's II-XII intact bilaterally and no sensory deficits noted Sensorium / Orientation: alert Motor Exam: strength 5/5 throughout Psych mental status grossly normal Skin no rashes or lesions noted MDM MDM MDM Narrative Medical decision making narrative: Differential diagnosis includes hypertensive urgency/emergency, migraine headache, subarachnoid hemorrhage, intracranial bleeding, intracranial mass, cardiac ischemia, and infection. CBC will be obtained to assess for leukocytosis and anemia. Basic metabolic profile will be obtained to assess for renal function and electrolyte abnormality. CT scan of the brain will be obtained to assess for intracranial bleeding and subarachnoid hemorrhage. EKG will be obtained to assess for cardiac ischemia or cardiac dysrhythmia. Troponin will be obtained to assess for cardiac ischemia. Lab Data Attestation: I reviewed the patient's lab results. Lab results narrative: CBC was reviewed and was within normal limits. Basic metabolic profile was reviewed and was within normal limits with the exception of a mildly elevated glucose of 212. Anion gap was normal. High-sensitivity troponin was normal at 6. 2-hour repeat high-sensitivity troponin was also normal at 6. Labs: Laboratory Results - last 24 hr 06/10/22 06/10/22 06/10/22 07:45 07:45 10:02 WBC 5.2 RBC 4.49 Hgb 13.1 Hct 39.0 MCV 86.9 MCH 29.2 MCHC 33.6 RDW Std Deviation 38.5 RDW Coeff of Oneil 12.0 Plt Count 233 MPV 10.4 Immature Gran % (Auto) 0.200 Neut % (Auto) 43.1 L Lymph % (Auto) 45.5 H [place] % (Auto) 8.3 Eos % (Auto) 2.5 Baso % (Auto) 0.4 Absolute Neuts (auto) 2.2 Absolute Lymphs (auto) 2.36 Nucleated RBC % 0 Sodium 141 Potassium 4.2 Chloride 104 Carbon Dioxide 26.0 Anion Gap 11 BUN 14 Creatinine 0.69 Estim Creat Clear Calc 75.43 Est GFR (MDRD) Af Amer 115 Est GFR (MDRD) Non-Af 95 BUN/Creatinine Ratio 20.3 H Glucose 212 H Calcium 9.6 Troponin I High Sens 6 6 Radiography Diagnostic Testing: Clinical Impression(s) from Imaging Studies Brain CT 06/10/22 07:37 IMPRESSION: Normal unenhanced CT scan of the brain. Sinusitis. Electronically Signed: Theron Wall MD at 8:19 EST , Chest X-Ray 06/10/22 07:38 IMPRESSION: Normal x-ray examination of the chest. Electronically Signed: Theron Wall MD at 8:44 EST , CT scan of the brain was obtained. There is no acute intracranial abnormality. This was interpreted by the radiologist and was also independently reviewed by myself. PA and lateral chest x-ray was obtained. There are 2 views. On my independent interpretation, lung mccoy are clear. There is normal cardiac silhouette. Bony thorax is normal. There is no acute process noted. Radiologist also interpreted the x-ray and agrees. EKG Initial EKG: Attestation: I personally reviewed and interpreted this EKG as follows: Interpretation: Sinus Rhythm (81) and Non-Specific ST Changes Comments: EKG was obtained. On my interpretation, it showed a normal sinus rhythm with a rate of 81. ND interval, QRS interval, and QTc intervals were all normal. [place] was normal. There are nonspecific ST-T wave changes. There is left ventricular hypertrophy noted. Prior EKG tracings: not available for review Prior: No Prior Treatment and Re-Evaluation Narrative: Patient was given IV fluids and Reglan. Patient was given a dose of labetalol. Patient is feeling better on reevaluation. Patient's blood pressure improved to 156/90. Patient states her headache has resolved. Patient was instructed to rest in a dark quiet room. Patient was instructed to continue to monitor her blood pressures. Patient was instructed to follow-up with her primary care physician in 5 to 7 days for further evaluation. Patient understood and was agreeable with the plan. All questions were answered. Discharge Plan Triage Chief Complaint: Hypertension ED Provider: Jeffrey Moore Dx/Rx/DC Orders Clinical Impression: Headache, migraine, HTN (hypertension) Instructions: ED Hypertension, Established, ED, Migraine (Classical) Prescriptions: No Action Metamucil 3.4 gram/5.4 gram powder 1 tsp PO DAILY Rx Instructions: mix into at least 4 oz water or juice before administering glucosamine-chondroitin [Osteo Bi-Flex] 250-200 mg tablet 1.5 tab PO QPC Excedrin Migraine 250-250-65 mg tablet 1 tab PO ONCE icosapent ethyl [Vascepa] 1 gram capsule 2 g PO BID Qty: 120 6RF estradiol 2 MG tablet 2 mg PO DAILY Qty: 100 4RF lisinopril 40 mg tablet 40 mg PO DAILY Qty: 30 5RF Primary Care Provider: Bree Hamilton Referrals: Bree Hamilton DO [Primary Care Provider] - 5-7 Days Disposition Disposition: Home, Self Care
--- NOTE | 2022-06-10 07:37 | CT_ITS ---
STUDY: CT BRAIN WITHOUT CONTRAST REASON FOR EXAM: Female, 51 years old. Headache, hypertensive RADIATION DOSAGE (If Supplied By Facility): CTDIvol = ( 44.99 ) mGy, DLP = ( 728.62 ) mGycm TECHNIQUE: Transaxial CT imaging of the brain was performed without administration of intravenous contrast material. Individualized dose optimization techniques were used for this CT. COMPARISON: No relevant priors. FINDINGS: Normal soft tissue structures. Normal calvarium. Normal size ventricles and extra-axial spaces for the patient''s age. Normal white matter tracts of the cerebral hemispheres. Normal basal ganglia and thalami. Normal brainstem. Normal cerebellum. There is no intracranial hemorrhage. There are no findings of an acute ischemic infarction. Mucosal thickening of the maxillary sinuses bilaterally. Opacification of the right ethmoid sinus. Partial opacification of the right frontal sinus. Minimal mucosal thickening of the anterior aspect of the right sphenoid sinus. CT/Brain/Head without Contrast IMPRESSION: Normal unenhanced CT scan of the brain. Sinusitis. Electronically Signed: Theron Wall MD at 8:19 EST ,
--- NOTE | 2022-06-10 07:38 | EKG12_ITS ---
Test Reason : HIGH BP Blood Pressure : / mmHG Vent. Rate : 081 BPM Atrial Rate : 081 BPM P-R Int : 126 ms QRS Dur : 114 ms QT Int : 396 ms P-R-T Axes : 041 -06 141 degrees QTc Int : 460 ms Normal sinus rhythm Incomplete left bundle branch block Left ventricular hypertrophy with repolarization abnormality ( R in aVL ) Abnormal ECG Confirmed by MARIA ANTONIA DUQUE, AHMET ([id number]), editor greeting card AMINAH ZAYAS ([id number]) on 06/11/2022 10:21:46 AM Referred By: ISAIAS Confirmed By:AHMET EM MD
--- NOTE | 2022-06-10 07:38 | RAD_ITS ---
STUDY: X-RAY CHEST REASON FOR EXAM: Female, 51 years old. Hypertension TECHNIQUE: PA and lateral views of the chest. COMPARISON: None. FINDINGS: EKG electrodes are seen. The lungs are clear and expanded. There is no demonstrated pleural abnormality. Normal size heart. Normal mediastinum and horace. Normal visualized pulmonary arteries. Normal visualized aortic arch and descending thoracic aorta. Normal visualized thoracic spine. Normal visualized ribs, clavicles, and shoulders. There is no demonstrated abnormality of the visualized soft tissue structures of the upper abdomen. RAD/Chest PA and Lateral IMPRESSION: Normal x-ray examination of the chest. Electronically Signed: Theron Wall MD at 8:44 EST ,
--- NOTE | 2022-06-10 07:43 | NURSING ---
NO OLD EKGS
[2022-06-10] MEDS: Labetalol (Prefilled) 20 MG/4 ML IV (07:46)
[2022-06-10] MEDS: Metoclopramide 10 MG/2 ML Vial IV (07:46)
[2022-06-10 07:55] LABS: Absolute Lymphocyte Count 2.36 X10^3/uL (0.83-4.51); Absolute Neutrophil Count 2.2 X10^3/uL (2.0-7.7); Basophil# 0.02 X10^3/uL; Basophil% 0.4 % (0-1); Eosinophil# 0.13 X10^3/uL; Eosinophils% 2.5 % (0-5); Hemoglobin 13.1 g/dL (12.0-15.0); Lymphocyte # 2.36 X10^3/ul (0.83-4.51); Lymphocyte % 45.5 % (19-41); Mean Corp Hgb Conc 33.6 g/dL (32-36); Mean Corpuscular Hgb 29.2 pg (27.0-32.0); Mean Corpuscular Volume 86.9 fL (81-99); Mean Platelet Vol. 10.4 fl (6.2-12.0); Monocyte# 0.43 X10^3/uL; Monocyte% 8.3 % (0-10); NRBC Flagged by Analyzer 0 % (0-5); Neutrophil # 2.24 X10^3/uL (2.7-7.7); Neutrophil % 43.1 % (47-70); Platelet Count 233 K/mm3 (150-450); RBC Distribution Width SD 38.5 fl (35.1-43.9); Red Blood Count 4.49 M/mm3 (4.2-5.4); White Blood Count 5.2 K/mm3 (4.4-11.0)
[2022-06-10 08:15] LABS: Anion Gap 11 (5-15); BUN 14 mg/dL (7-18); BUN/Creat Ratio 20.3 RATIO (10-20); Calcium,Total 9.6 mg/dL (8.5-10.1); Chloride 104 mmol/L (98-107); Creatinine, Serum 0.69 mg/dL (0.55-1.02); EST Glomerular Filtration Rate 95 mL/min (>60); Est Glom Filt Rate - Afr Amer 115 mL/min (>60); Estimated Creatinine Clearance 75.43 ml/min; Glucose 212 mg/dL (74-106); Potassium 4.2 mmol/L (3.5-5.1); Sodium Level 141 mmol/L (136-145); Troponin-I HS (w/2H Reflex) 6 pg/mL (3.0-54.0)
[2022-06-10 08:49] VITALS: BP 162/87; PULSE 68; RESP 16; O2SAT 99
[2022-06-10 09:52] LABS: Reflex Troponin-HS? (from REC) Y
[2022-06-10 10:05] VITALS: BP 156/90; PULSE 68; RESP 16; O2SAT 99
[2022-06-10 10:37] LABS: Troponin-I HS 6 pg/mL (3.0-54.0)
[2022-06-10 11:04] VITALS: BP 178/86; PULSE 71; RESP 16; O2SAT 97
== END 2022-06-10 11:05 | disposition home or self-care (01) ==
PROVIDERS: Emergency Provider Emergency Medicine; PCP Family Medicine; Visit Provider Emergency Medicine
DX: G43.909 Migraine, unspecified, not intractable, without status migrainosus (principal); I10 Essential (primary) hypertension; E66.9 Obesity, unspecified; Z68.32 Body mass index [BMI] 32.0-32.9, adult; Z79.82 Long term (current) use of aspirin; Z79.899 Other long term (current) drug therapy
CPT/HCPCS: 70450; 71046; 80048; 84484; 85025; 93005; 96374; 96375; 99284; A4216

== ENCOUNTER → 2023-03-28 | Outpatient (CLI) | payer BC, SELFPAY ==
[2023-03-28 15:37] LABS: Vitamin B12 365 pg/mL (211-911)
[2023-03-28 15:40] LABS: Cholesterol 233 mg/dL (200); High Density Lipoprotein 40 mg/dL; Thyroid Stim Hormone (TSH) 0.97 uIU/mL (0.358-3.74); Triglycerides 236 mg/dL; Very Low Density Lipoprotein 47 mg/dL (5-40)
[2023-03-28 15:53] LABS: Microalbumin:Creatinine Ratio 9.2 mg/g CRE (<30 mg/g CRE)
== END | disposition home or self-care (01) ==
LOC: BFHLAB 13:14
PROVIDERS: PCP Family Medicine; Visit Provider Family Medicine
DX: E11.9 Type 2 diabetes mellitus without complications (principal); E78.1 Pure hyperglyceridemia; R53.83 Other fatigue
CPT/HCPCS: 36415; 80061; 82043; 82570; 82607; 84443

== ENCOUNTER → 2023-04-01 | Outpatient (CLI) | payer BC, SELFPAY ==
--- NOTE | 2023-04-01 12:08 | BI_ITS ---
MAMMOGRAPHY - BILATERAL SCREENING REASON FOR EXAM: Female, 52 years old. Routine annual screening examination. PERTINENT HISTORY: Aunt with breast cancer. TECHNIQUE: Digital bilateral breast lisandra (3D mammographic acquisition) in the CC and MLO projections. 2-D mediolateral oblique (MLO) and craniocaudad (CC) views of both breasts were obtained. CAD: Full Field Digital Mammography with Computer Added Detection was performed. COMPARISON: Comparison is made with prior study February 18, 2021 and October 16, 2019. FINDINGS: Breast Composition: The breasts are heterogeneously dense, which may obscure small masses. There are no dominant masses or suspicious calcifications. No other significant abnormalities are identified. There has been no significant change since the prior study. BI/SCRN MAMM (CAD)W/LISANDRA BILAT IMPRESSION: Stable bilateral screening mammogram. Yearly follow-up mammogram recommended. (A) ASSESSMENT CATEGORY: BIRADS Category 1: Negative. A letter regarding these results will be sent to the patient by the facility within 30 days. Approximately 10% of breast cancers are not detected by mammography. A normal mammogram should not delay biopsy of a clinically suspicious abnormality. [id number] Electronically Signed: Theron Wall MD at 13:52 EST ,
== END | disposition home or self-care (01) ==
LOC: OPBI 12:07
PROVIDERS: PCP Family Medicine; Visit Provider Family Medicine
DX: Z12.31 Encounter for screening mammogram for malignant neoplasm of breast (principal); Z80.3 Family history of malignant neoplasm of breast
CPT/HCPCS: 77063; 77067

== ENCOUNTER → 2023-04-05 | Outpatient (CLI) | payer BC, SELFPAY ==
--- NOTE | 2023-04-05 10:40 | RAD_ITS ---
STUDY: X-RAY - LUMBAR SPINE REASON FOR EXAM: Female, 52 years old. Low back pain. TECHNIQUE: 5 view(s) of the lumbar spine were obtained. COMPARISON: None FINDINGS: Normal lumbar lordosis. Minimal levoscoliosis. Normal alignment. Diffuse mild lower thoracic and lumbosacral facet sclerosis. Minimal intervertebral disc space narrowing at L3-4 and to the greatest degree L5-S1. Minimal vascular calcification. RAD/L/S Spine Min 4 Views IMPRESSION: Minimal lower lumbosacral spondylosis. Electronically Signed: Tiago Jiménez MD at 16:06 EST ,
== END | disposition home or self-care (01) ==
LOC: RAD 10:30
PROVIDERS: PCP Family Medicine; Referring Provider Nurse Practitioner Family; Visit Provider Nurse Practitioner Family
DX: M54.40 Lumbago with sciatica, unspecified side (principal)
CPT/HCPCS: 72110

== ENCOUNTER → 2023-04-21 | Outpatient (CLI) | payer BC, SELFPAY ==
--- NOTE | 2023-04-21 09:06 | NEURO ---
NCS and/or EMG Patient Report Ordering Doctor: Travis Montes DATE OF SERVICE: 04/21/23 Clinical Summary: This is a 52 year old female presenting with complaints of numbness in the right lateral calf region and the dorsum of the right foot. She denies having any current back pain. This EMG/NCS was performed to evaluate for right peroneal mononeuropathy and lumbar radiculopathy. Nerve Conduction Studies Summary: The right peroneal-EDB CMAP amplitude was diffusely reduced. There was right peroneal motor conduction velocity slowing across the fibular head greater than 10 m/s. Needle Examination Summary: Needle examination demonstrated increased insertional activity and increased spontaneous activity (positive sharp waves) in the right peroneus longus muscle. There was a higher proportion of motor unit action potentials with reduced recruitment, increased amplitude, increased duration, and polyphasia in the right peroneus longus muscle. 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 As such, an MRI lumbar spine is recommended to fully rule out a lumbar radiculopathy. Multi Select Codes Neurology Neurology Interp Codes: 32963-17 Musc test done w/n test comp (interp) (2) and 14536-95 Nrv cndj test 7-8 studies (interp) (8)
== END | disposition home or self-care (01) ==
LOC: PSN 07:24
PROVIDERS: PCP Family Medicine; Referring Provider Podiatrist; Visit Provider Podiatrist
DX: R20.2 Paresthesia of skin (principal)
CPT/HCPCS: 95886; 95910

== ENCOUNTER 2023-05-31 08:00 | Outpatient (RCR) | payer BC, SELFPAY ==
--- NOTE | 2023-04-12 10:59 | HP.PTEVAL_ITS ---
Patient's Visit Information Visit Information Visit Information: AVTAR FRANCOIS is a 52 year old F referred to Physical Therapy by ILIA Tavarez with a diagnosis of LUMBAGO WITH SCIATICA. Date of Evaluation: 04/12/23 Physical Therapist: Radu Robertson, PT, Cert MDT, OCS Visit Plan Frequency: 2x /Week Duration: 4 Weeks Plan: PT INTEERVTIONS MARIA T EX'S ,MANUAL THERAPY ,DLS ,POSTURALE X'S ,A CTIVIATY MODIFICATION AND MODALTIES Subjective Subjective: This 52 y/o female presents to physical therapy with lumbar radiculopathy . Patient developed lumbar pain ~ 4weeks ago sitting on bleachers and developed symptoms in leg next morning. Patient went to family DR order x- rays and prescribed gabapentin and tramadol. Patient seen chiropractor few times. Patient pain located right lumbar LS buttock and lateral leg to lateral calf-foot. Aggravating bending ,lifting ,walking , sitting ,driving and standing. Alleviating factors rest ,ice and heat. Denies paresthesia/tingling-. Pain described as dull pain. Bowel/bladder -. Coughing/sneezing -. Patient has difficulty sleeping. Patient pin affects QOL and function /job demands . Patient goals to decrease pain. VOCATION: [employer];' Pain Bilateral Back: Pain Intensity (Out of 10): 3 Pain Intensity Range: 10 Right Lower Extremity: Pain Intensity (Out of 10): 9 Pain Intensity Range: 10 Objective Objective: POSTURE: mild forward posture GAIT: reciprocal pattern antalgic gait right side NEURO: denies paresthesia/tingling ,reflexes L3-4 ,L4-5 ,L5-S1 1/3 ,+ FAYE LUMBAR ROM: flexion mod loss pain ,side glides min loss ,extension min loss FLEXABLITY: hamstrings severe loss right with + SLR MMT: quads/hams/hip /ankle right 4/5 ,left 4-/5 Special Tests L/S Slump test left side: Negative L/S Slump test right side: Negative L/S Left Straight Leg Raise: Negative L/S Right Straight Leg Raise: Negative Lumbar Standing: Flexion - Mechanical Response: No effect Lumbar Standing: Flexion - Symptoms During Testing: Increases Lumbar Standing: Flexion - Symptoms After Testing: Worse Lumbar Standing: Extension - Mechanical Response: No effect Lumbar Standing: Extension - Symptoms During Testing: Decreases Lumbar Standing: Extension - Symptoms After Testing: Better Lumbar Standing: Right Side Glides - Mechanical Response: No effect Lumbar Standing: Right Side [place] - Symptoms During Testing: No effect Lumbar Standing: Right Side [place] - Symptoms After Testing: No effect Lumbar Standing: Left Side [place] - Mechanical Response: No effect Lumbar Standing: Left Side [place] - Symptoms During Testing: No effect Lumbar Standing: Left Side [place] - Symptoms After Testing: No effect Lumbar Lying: Flexion - Mechanical Response: No effect Lumbar Lying: Flexion - Symptoms During Testing: Increases Lumbar Lying: Flexion - Symptoms After Testing: Worse Lumbar Lying: Extension - Mechanical Response: No effect Lumbar Lying: Extension - Symptoms During Testing: Decreases Lumbar Lying: Extension - Symptoms After Testing: Better Balance/Special Test Scores Oswestry Low Back Score: 34 Goals Goal 1:: Patient to be I with HEP for back Goal Time Frame: 4-6 Weeks Goal 2:: Patient to improve posture/body mechanics for ADLS 90% OF THE TIME Goal Time Frame: 4-6 Weeks Goal 3:: Patient to improve lumbar ROM for function of recovery for lifting Goal Time Frame: 4-6 Weeks Goal 4:: Patient to demonstrate 60% improvement with decrease leg and back pain and improved Goal Time Frame: 4-6 Weeks Goal 5:: Patient to improve back oswestry by score by 5 points to improve function Goal Time Frame: 4-6 Weeks Rehabilitation Potential Physical Therapy Diagnosis: This patient has apparent with possible derangement below knee with possible HNP with pain during positioning and motion testing worse with flexion and better with extension thus benefit from skilled PT Rehabilitation Potential: Good Anticipated Interventions Patient/Client Instruction: Educate patient on: Condition For the Purpose of:: To decrease pain, To increase ROM, To improve muscle performance and motor function, To improve ability to perform ADL's, To increase tolerance to activity/condition/position, To improve ability of physical actions for home/community/work/leisure, To improve health of tissue, To decrease soft tissue restriction, To increase flexibility/ROM and To reduce risk of recurrence Therapeutic Exercise to Include: Strength training, Body mechanics, Postural training, Flexibilty training, Dynamic Lumbar Stabilization and Maria T Exercises For the Purpose of:: To decrease pain, To increase ROM, To improve muscle performance and motor function, To improve ability to perform ADL's, To increase tolerance to activity/condition/position, To improve ability of physical actions for home/community/work/leisure, To improve health of tissue, To decrease soft tissue restriction, To increase flexibility/ROM and To improve tolerance to ADL's Manual Therapy Techniques to Include: Mobilization Comment: LUMBAR For the Purpose of:: To decrease pain, To increase ROM, To improve health of tissue, To decrease soft tissue restriction and To increase flexibility/ROM TENS: Yes IF ES: Yes Cryotherapy (ice pack, ice massage): Yes Thermo therapy (hot pack): Yes Ultrasound (thermal/non thermal): Yes For the Purpose of:: To decrease pain, To increase ROM, To improve health of tissue and To decrease soft tissue restriction Text: Thank you for the opportunity to evaluate your patient. For Medicare and Medicare HMO plans, please review the plan of care and approve it. It will need to be FAXED BACK to us at [phone] for Medicare purposes. For Medicare only, by signing this I certify the plan of care. Please let me know if there are questions or concerns regarding this plan of care. Physician Signature:_ Date:
--- NOTE | 2023-08-15 16:41 | HP.PTDCSUM_ITS ---
Discharge Summary D/C summary: It has been my pleasure to treat AVTAR FRANCOIS referred by Sanaz Thornton NP-C, with the diagnosis of LUMBAGO WITH SCIATICA for a total of 10 visit(s). Discharge Date: Please see the following information for a summary of their discharge status. Subjective Subjective: Doing better with back ,pain in hips Pain Bilateral Back: Pain Intensity (Out of 10): 0 Right Lower Extremity: Pain Intensity (Out of 10): 5 Right Hip: Pain Intensity (Out of 10): 5 Overall Improvement % Improvement: 50 Objective Objective/Function: RESOLVING PAIN IN BACK AND LEG ALTHOUGH HIPS IT BAND WEAK A ND SORE TX FOCUSED ON HIPS TODAY LUMBAR ROM: WNL STRENGTH : quads/hams 4/5 ,hip 4-/5 Goals Goal 1:: Patient to be I with HEP for back Goal Progress: Goal Met Goal 2:: Patient to improve posture/body mechanics for ADLS 90% OF THE TIME Goal Progress: Goal Met Goal 3:: Patient to improve lumbar ROM for function of recovery for lifting Goal Progress: Goal Met Goal 4:: Patient to demonstrate 60% improvement with decrease leg and back pain and improved Goal Progress: Goal Met Goal 5:: Patient to improve back oswestry by score by 5 points to improve function Plan Plan: d/c D/C Information d/c sentence: If there are questions or concerns regarding this patient's physical therapy, please feel free to call me at [phone]. Thank you for the referral of this patient. Sincerely, Radu Robertson, PT, Cert MDT, OCS Balance/Gait/Functional tests Balance/Special Test Scores Oswestry Low Back Score: 2 Improvement % Improvement: 50
== END 2023-05-31 19:00 | disposition home or self-care (01) ==
LOC: PT 08:00
PROVIDERS: PCP Family Medicine; Visit Provider Nurse Practitioner Family
DX: M54.40 Lumbago with sciatica, unspecified side (principal)
CPT/HCPCS: 97014; 97032; 97110; 97162; G0283

== ENCOUNTER → 2023-07-28 | Outpatient (CLI) | payer BC, SELFPAY ==
[2023-07-28 10:52] LABS: ALB/GLOB Ratio 1.1 RATIO (0.9-2.4); AST(SGOT) 15 U/L (15-37); Alanine Aminotransfer ALT/SGPT 22 U/L (13-56); Albumin, Serum 4.2 g/dL (3.2-5.0); Alkaline Phosphatase 89 U/L (45-117); Anion Gap 5 (5-15); BUN 16 mg/dL (7-18); BUN/Creat Ratio 19.7 RATIO (10-20); Calcium,Total 9.6 mg/dL (8.5-10.1); Chloride 110 mmol/L (98-107); Cholesterol 249 mg/dL (200); Creatinine, Serum 0.81 mg/dL (0.55-1.02); EST Glomerular Filtration Rate 78 mL/min (>60); Est Glom Filt Rate - Afr Amer 95 mL/min (>60); Globulin 3.8 g/dL (2.2-4.2); Glucose 118 mg/dL (74-106); High Density Lipoprotein 43 mg/dL; Potassium 4.6 mmol/L (3.5-5.1); Sodium Level 142 mmol/L (136-145); Thyroid Stim Hormone (TSH) 0.88 uIU/mL (0.358-3.74); Triglycerides 168 mg/dL; Very Low Density Lipoprotein 34 mg/dL (5-40)
[2023-07-28 11:29] LABS: Microalbumin,Random Urine 16.1 mg/L (NO RANGE EST.); Microalbumin:Creatinine Ratio 8.7 mg/g CRE (<30 mg/g CRE)
== END | disposition home or self-care (01) ==
LOC: LAB 09:43
PROVIDERS: PCP Family Medicine; Referring Provider Internal Medicine Endocrinology, Diabetes & Metabolism; Visit Provider Internal Medicine Endocrinology, Diabetes & Metabolism
DX: I10 Essential (primary) hypertension (principal); E11.9 Type 2 diabetes mellitus without complications; E78.2 Mixed hyperlipidemia; E55.9 Vitamin D deficiency, unspecified
CPT/HCPCS: 36415; 80053; 80061; 82043; 82306; 82570; 84443

== ENCOUNTER → 2023-10-18 | Outpatient (CLI) | payer BC, SELFPAY ==
--- NOTE | 2023-10-18 08:33 | BD_ITS ---
STUDY: DUAL ENERGY X-RAY ABSORPTIOMETRY / DXA REASON FOR EXAM: Female, 52 years old. [id number] TECHNIQUE: Bone Mineral Density (BMD) measurements of lumbar spine and bilateral hips were obtained. COMPARISON: Comparison is made with prior study dated April 09, 2021. FINDINGS: Lumbar Spine (L1-L4): g/cm2 (1.197) / T-score (1.4) / Z-score (2.4) Findings are suggestive of normal bone density with a low fracture risk. Left Femur Total: g/cm2 (0.967) / T-score (0.2) / Z-score (0.8) Left Femoral Neck: g/cm2 (0.869) / T-score (0.2) / Z-score (1.2) Right Femur Total: g/cm2 (0.993) / T-score (0.4) / Z-score (1.0) Right Femoral Neck: g/cm2 (0.891) / T-score (0.4) / Z-score (1.4) The T-Scores on the most recent prior examination were: Lumbar Spine (L1-L4): There has been improvement of bone density since the previous examination. Left Femur Total: which represents a worsening of 7%. Right Femur Total: which represents a worsening of 5.5%. BD/Dexa Bone Density Study IMPRESSION: The patient is considered normal as outlined below according to World Adis Organization (WHO) criteria with a low fracture risk. There has been worsening of bone density since the previous examination. Reference Information: The T-score is the number of standard deviations above or below the standard which is normal for young adults at their peak bone mineral density. The World Health Organization (WHO) interprets the T-scores as follows: Above -1 Normal bone density Between -1 and -2.5 Osteopenia Equal to / or below -2.5 Osteoporosis As a practical clinical guideline, osteopenia may be graded as follows: Mild -1 through -1.5 Moderate -1.6 through -2.0 Severe -2.1 through -2.4 The Z-score is the number of standard deviations above or below age-matched controls. A Z-score of less than -1.5 would be considered abnormal. References: 1. NIH Osteoporosis and Related Bone Diseases www osteo.org 2. International Society for Clinical Densitometry www iscd.org 3. National Osteoporosis Foundation www nof.org Electronically Signed: Theron Wall MD at 10:00 EDT ,
== END | disposition home or self-care (01) ==
PROVIDERS: PCP Family Medicine; Referring Provider Family Medicine; Visit Provider Family Medicine
DX: Z13.820 Encounter for screening for osteoporosis (principal); Z78.0 Asymptomatic menopausal state
CPT/HCPCS: 77080

== ENCOUNTER → 2024-02-20 | Outpatient (CLI) | payer BC, SELFPAY | END | disposition home or self-care (01) | PROVIDERS: PCP Family Medicine; Referring Provider Family Medicine; Visit Provider Family Medicine | DX: R82.90 Unspecified abnormal findings in urine (principal) | CPT/HCPCS: 87086; 87088; 87186 ==

== ENCOUNTER → 2024-04-11 | Outpatient (CLI) | payer BC, SELFPAY ==
[2024-04-11 12:58] LABS: Absolute Lymphocyte Count 2.21 X10^3/uL (0.83-4.51); Absolute Neutrophil Count 2.6 X10^3/uL (2.0-7.7); Basophil# 0.02 X10^3/uL; Basophil% 0.4 % (0-1); Eosinophil# 0.02 X10^3/uL; Eosinophils% 0.4 % (0-5); Hematocrit 40.7 % (37-47); Hemoglobin 13.4 g/dL (12.0-15.0); Lymphocyte # 2.21 X10^3/ul (0.83-4.51); Lymphocyte % 42.2 % (19-41); Mean Corp Hgb Conc 32.9 g/dL (32-36); Mean Corpuscular Hgb 29.2 pg (27.0-32.0); Mean Corpuscular Volume 88.7 fL (81-99); Mean Platelet Vol. 10.5 fl (6.2-12.0); Monocyte# 0.34 X10^3/uL; Monocyte% 6.5 % (0-10); NRBC Flagged by Analyzer 0 % (0-5); Neutrophil # 2.64 X10^3/uL (2.7-7.7); Neutrophil % 50.3 % (47-70); Platelet Count 283 K/mm3 (150-450); RBC Distribution Width SD 38.9 fl (35.1-43.9); Red Blood Count 4.59 M/mm3 (4.2-5.4); White Blood Count 5.2 K/mm3 (4.4-11.0)
[2024-04-11 13:41] LABS: ALB/GLOB Ratio 1.2 RATIO (0.9-2.4); AST(SGOT) 16 U/L (15-37); Alanine Aminotransfer ALT/SGPT 22 U/L (13-56); Alkaline Phosphatase 89 U/L (45-117); Anion Gap 5 (5-15); BUN 14 mg/dL (7-18); BUN/Creat Ratio 20.2 RATIO (10-20); Calcium,Total 9.4 mg/dL (8.5-10.1); Chloride 110 mmol/L (98-107); Cholesterol 262 mg/dL (200); Creatinine, Serum 0.69 mg/dL (0.55-1.02); EST Glomerular Filtration Rate 94 mL/min (>60); Est Glom Filt Rate - Afr Amer 113 mL/min (>60); Ferritin 109 ng/mL (8-252); Globulin 3.4 g/dL (2.2-4.2); Glucose 109 mg/dL (74-106); High Density Lipoprotein 50 mg/dL; Potassium 4.2 mmol/L (3.5-5.1); Protein, Total 7.4 g/dL (6.4-8.2); Sodium Level 141 mmol/L (136-145); Triglycerides 162 mg/dL; Very Low Density Lipoprotein 32 mg/dL (5-40)
[2024-04-12 04:07] LABS: Thyroid Peroxidase AB 21 IU/mL (0-34)
== END | disposition home or self-care (01) ==
LOC: LAB 12:31
PROVIDERS: PCP Family Medicine; Referring Provider Internal Medicine Endocrinology, Diabetes & Metabolism; Visit Provider Internal Medicine Endocrinology, Diabetes & Metabolism
DX: E11.65 Type 2 diabetes mellitus with hyperglycemia (principal); I10 Essential (primary) hypertension; E78.2 Mixed hyperlipidemia
CPT/HCPCS: 36415; 80053; 80061; 82728; 85025; 86376

== ENCOUNTER → 2025-01-18 | Outpatient (CLI) | payer BC, SELFPAY ==
[2025-01-18 12:08] LABS: Creatinine, Urine (random) 157.00 mg/dL (28.00-217.00); Microalbumin,Random Urine < 12.0 mg/L (<20 mg/L)
[2025-01-18 13:10] LABS: AST(SGOT) 18 U/L (<=31); Alanine Aminotransfer ALT/SGPT 16 U/L (<=34); Albumin, Serum 4.4 g/dL (3.5-5.0); Alkaline Phosphatase 80 U/L (35-104); Anion Gap 11 (5-15); BUN 14 mg/dL (4-19); BUN/Creat Ratio 19.0 RATIO (10-20); Calcium,Total 9.8 mg/dL (7.6-11.0); Carbon Dioxide 24.6 mmol/L (21.0-32.0); Chloride 103 mmol/L (98-108); Cholesterol 250 mg/dL (<=200); Globulin 2.7 g/dL (2.2-4.2); Glucose 112 mg/dL (70-99); Low Density Lipoprotein Calc. 169 mg/dL; Potassium 4.5 mmol/L (3.3-5.1); Triglycerides 185 mg/dL; Very Low Density Lipoprotein 37 mg/dL (5-40); Vitamin D,25 Hydroxy 25.1 ng/mL (30-100); cholesterol:hdl ratio screen 5.64
== END | disposition home or self-care (01) ==
PROVIDERS: PCP Family Medicine; Referring Provider Internal Medicine Endocrinology, Diabetes & Metabolism; Visit Provider Internal Medicine Endocrinology, Diabetes & Metabolism
DX: E11.65 Type 2 diabetes mellitus with hyperglycemia (principal); E78.2 Mixed hyperlipidemia; I10 Essential (primary) hypertension; E03.9 Hypothyroidism, unspecified
CPT/HCPCS: 36415; 80053; 80061; 82043; 82306; 82570; 84443

== ENCOUNTER → 2025-01-28 | Outpatient (CLI) | payer BC, SELFPAY ==
[2025-01-28 18:00] LABS: Magnesium 2.0 mg/dL (1.5-2.2); Vitamin B12 588 pg/mL (180-914)
[2025-01-30 14:09] LABS: ANTINUCLEAR ANTIBODIES DIRECT Negative (Negative)
== END | disposition home or self-care (01) ==
LOC: LAB 15:11
PROVIDERS: PCP Family Medicine; Referring Provider Nurse Practitioner Family; Visit Provider Nurse Practitioner Family
DX: G62.9 Polyneuropathy, unspecified (principal); R25.2 Cramp and spasm
CPT/HCPCS: 36415; 82607; 83735; 86038; 86225

== ENCOUNTER 2025-02-13 10:46 | Emergency (ER) | payer BC, SELFPAY ==
[2025-02-13 10:47] VITALS: BP 188/122; PULSE 108; RESP 20; TEMP 36.1; O2SAT 100; BMI 29.0
--- NOTE | 2025-02-13 11:06 | EX.ED.DYSGE1 ---
HPI History of Present Illness Chief Complaint: Numb/Ting Detail of Chief Complaint: Paresthesia bilaterally since January 10. Recent numbness RUE rotation l Informant: patient Onset/Context/Timing Onset: Weeks Context: Sudden Onset Timing: Intermittent (RUE intermittent with turning head to the left) Quality: Total right upper extremity numbness Location: Right upper extremity Current Severity: Gone (Chronic tingling of her fingers bilaterally) Maximum Severity: Moderate (Turning head to the right) Worsened by: Turning head to the right Relieved by: The total upper extremity numbness resolves when she is not turned to the r Associated Symptoms Associated Symptoms: She denies visual disturbance other than something is not right Narrative Narrative: Patient is a 54-year-old woman. She she is seen by Dr. Carly Price. She had blood work as outpatient and blood work today. The blood work today is to assess for autoimmune disorder. She has seen Dr. Romano recently. Assessment is type 2 diabetes mellitus with hyperglycemia excellent control. Hypertension, with acceptable control. And overweight with a BMI of 29. Patient had an outpatient EMG performed April 21, 2023 of the lower extremity. 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 Patient presents because she was at the lab having blood drawn. She developed increased numbness in her right upper extremity when she turns her head to the left. She states she now does not turn her head to the left but turns her entire body to the left. She has had numbness in her digits upper extremity for longer. She is scheduled for an outpatient EMG. She is scheduled for an outpatient MRI of her brain. She denies any visual disturbance i.e. double vision, loss of vision, partial loss of vision with her neurologic symptoms. She has no history to her knowledge of neck injury. She denies problems with coordination or balance. She denies problems with fine motor skills. Prior similar symptoms: Yes (Bilateral digit numbness upper extremity. New intermittent right upper ext) Recent Illness/Hospitalization: Yes (Documented HPI narrative) [facility] Medical History Anxiety Overweight (BMI 25.0-29.9) Mixed hyperlipidemia Diabetes Wears glasses Scratches Migraine headache Non-smoker Hypertension Heart murmur External hemorrhoid GERD (gastroesophageal reflux disease) Anxiety and depression Cardiac murmur HTN (hypertension) Osteoarthritis Gestational diabetes Home Medications ?Medication ?Instructions ?Recorded ?Last Taken ?Type uneqcrb-xpewbywaemvik-zckvcgqw 250 1 tab PO ONCE 04/15/22 Unknown History mg-250 mg-65 mg tablet (Excedrin Migraine) psyllium husk 3.4 gram/5.4 gram 1 tsp PO DAILY 04/15/22 Unknown History oral powder (Metamucil) blood sugar diagnostic (FreeStyle #100 ea 07/28/23 Unknown Rx Lite Strips) lancets 28 gauge (FreeStyle #100 ea 07/28/23 Unknown Rx Lancets) Collagen PO 12/29/23 Unknown History glimepiride 1 mg tablet 1 mg PO DAILY #90 tabs 02/06/24 Unknown Rx Rybelsus 14 mg tablet (semaglutide) 14 mg PO DAILY #90 tabs 01/03/25 Unknown Rx lisinopril 40 mg tablet 40 mg PO DAILY #90 tabs 01/03/25 Unknown Rx gabapentin 300 mg capsule 300 mg PO BID #60 caps 02/13/25 Unknown Rx Allergy/AdvReac Type Severity Reaction Status Date / Time bee venom protein (honey bee) Allergy Anaphylaxis Verified 02/13/25 10:50 Penicillins (PCN) Allergy Hives Verified 02/13/25 10:50 diphenhydramine HCl (From AdvReac BLACK OUT Verified 02/13/25 10:50 Benadryl) Family History Father Hypertension Hypercholesteremia Surgical History History of total hysterectomy History of 2 sections Social History Smoking Status: Never smoker ROS ROS ED Constitutional Constitutional ED: Denies chills, fever(s), subjective, sweats or weight loss Eyes Eyes: Reports change in vision bilateral (Patient states it is different. She cannot be more specific); Denies blurry vision or diplopia ENT ENT ED: Denies ear pain, rhinorrhea or sore throat Cardiovascular Cardiovascular: Denies chest pain, orthopnea, palpitations, paroxysmal nocturnal dyspnea or racing heartbeat Respiratory/Chest Respiratory/Chest: Denies cough, dyspnea, dyspnea on exertion, orthopnea or paroxysmal nocturnal dyspnea Gastrointestinal Gastrointestinal: Denies abdominal pain, nausea or vomiting Genitourinary Genitourinary ED: Denies dysuria, hematuria or urinary frequency Musculoskeletal Musculoskeletal: Denies arthralgias, back pain, myalgias or neck pain Neurologic Neurologic: Reports paresthesias RUE and LUE Psychiatric Psychiatric: Reports anxiety and other Details: Per old records has a history of anxiety. Hematologic/Lymphatic Hematologic/Lymphatic: Reports systems reviewed and no addt'l complaints, except as documented EXAM Physical Exam Const Vital Signs: 02/13/25 10:47 02/13/25 11:47 02/13/25 12:00 Temperature 97 F L Temperature Source Temporal Pulse Rate 108 H 84 84 Respiratory Rate 20 H 16 16 Blood Pressure 188/122 H 134/91 H 134/91 H Blood Pressure Mean 144 105 105 Pulse Ox 100 97 97 Oxygen Delivery Method Room Air Room Air 02/13/25 13:00 Temperature Temperature Source Pulse Rate 81 Respiratory Rate 16 Blood Pressure 134/91 H Blood Pressure Mean 105 Pulse Ox 97 Oxygen Delivery Method Room Air Positive well nourished and well developed Constitutional Narrative: Patient is flushed. She states she is flushed because she is nervous. This may explain her elevated blood pressure and tachycardia. I was asked to see her in triage because of concern for possible stroke. She was seen in triage. With onset of symptoms January 10 and bilateral doubt CVA. The fact that is worse when she turns her head to the left raises concern for problems with her neck and possibly vascular supply. General Appearance ED: well developed and NAD; Negative for cyanotic, diaphoretic or pallor HEENT Reports moist mucous membranes HEENT Narrative: Ears normal. Nares patent. Posterior pharynx not erythema or exudate. Uvula midline. No deviation with protrusion Eyes PERRL and EOMs intact bilaterally Eyes Narrative: There is no nystagmus. General Eye ED: Negative for pale conjunctiva or scleral icterus Neck no lymphadenopathy, supple and no JVD Resp normal respiratory effort and clear to auscultation bilaterally Cardio regular rhythm, S1 normal heart sound, S2 normal heart sound and no murmurs Rate: tachycardic GI normal to inspection, nondistended, normoactive bowel sounds, non-tender and non-distended; Negative for hepatosplenomegaly Extremity normal to inspection Extremity Narrative: Altered sensation of all of her fingers and thumb bilaterally. Radial pulses palpable and symmetric. Neuro oriented x3, CN's II-XII intact bilaterally and No no sensory deficits noted Neuro Narrative: Bicep, brachialis and tricep reflex are 2+ and symmetric. Sensorium / Orientation: alert Motor Exam: strength 5/5 throughout Psych mental status grossly normal Skin no rashes or lesions noted and skin turgor normal General Skin Exam: elasticity normal; Negative for jaundice or pallor MDM MDM MDM Narrative Medical decision making narrative: Patient does seem slightly anxious. She states the doctors are doing test but have no answer presently. In my opinion this may be related to her vascular supply or neck. She has a negative Anu's test on the right. Will obtain CTA of the neck. Since she has not had a recent CBC this was ordered. She has not had electrolyte panel for over a month. Will repeat. Lab Data Attestation: I reviewed the patient's lab results. Lab results narrative: CBC is normal. Competence of metabolic panel with slight elevation of glucose at 155. She has known diabetes. CO2 is slightly low with a normal anion gap. Labs: Laboratory Results - last 24 hr 02/13/25 11:10 WBC 5.7 RBC 4.72 Hgb 14.1 Hct 41.3 MCV 87.5 MCH 29.9 MCHC 34.1 RDW Std Deviation 39.1 RDW Coeff of Oneil 12.2 Plt Count 290 MPV 10.7 Immature Gran % (Auto) 0.200 Neut % (Auto) 53.5 Lymph % (Auto) 38.9 White % (Auto) 6.5 Eos % (Auto) 0.7 Baso % (Auto) 0.2 Absolute Neuts (auto) 3.1 Absolute Lymphs (auto) 2.22 Nucleated RBC % 0 Sodium 136 Potassium 4.5 Chloride 103 Carbon Dioxide 17.2 L Anion Gap 15 BUN 16 Creatinine 0.66 L Estim Creat Clear Calc 89.48 Est GFR (MDRD) Non-Af 104 BUN/Creatinine Ratio 24.5 H Glucose 155 H Calcium 9.9 Total Bilirubin 0.37 AST 22 ALT 17 Alkaline Phosphatase 83 Total Protein 7.3 Albumin 4.4 Globulin 2.9 Albumin/Globulin Ratio 1.5 Radiography Diagnostic Testing: Clinical Impression(s) from Imaging Studies Neck CTA 02/13/25 12:05 IMPRESSION: Mild atherosclerosis of the left carotid bulb without significant stenosis. Otherwise normal CTA of the neck. Partially visualized intracranial arteries are unremarkable. Reading Location: [address] Treatment and Re-Evaluation :: CT of the neck revealed no acute abnormality. Patient does have arthritic changes. Apparently radiologist did not comment on the bone. My suspicion is her symptoms are due to cervical spine pathology and not intracranial pathology. She was instructed to make her appointment for EMG Discharge Plan Triage Chief Complaint: Numb/Ting ED Provider: Wu Marcano Dx/Rx/DC Orders Clinical Impression: Paresthesia and pain of both upper extremities, HTN (hypertension), Diabetes, Mixed hyperlipidemia, Overweight (BMI 25.0-29.9) Instructions: ED Paresthesia Prescriptions: New gabapentin 300 mg capsule 300 mg PO BID Qty: 60 0RF No Action Metamucil 3.4 gram/5.4 gram powder 1 tsp PO DAILY Rx Instructions: mix into at least 4 oz water or juice before administering Excedrin Migraine 250-250-65 mg tablet 1 tab PO ONCE (DME) lancets [FreeStyle Lancets] 28 gauge misc See Rx Instructions .Route Qty: 100 3RF Rx Instructions: daily (DME) FreeStyle Lite Strips Strip See Rx Instructions .Route Qty: 100 3RF Rx Instructions: daily Collagen PO Rybelsus 14 mg tablet 14 mg PO DAILY Qty: 90 1RF lisinopril 40 mg tablet 40 mg PO DAILY Qty: 90 1RF glimepiride 1 mg tablet 1 mg PO DAILY Qty: 90 1RF Primary Care Provider: Amarilys Serrano Referrals: Amarilys Serrano MD [Primary Care Provider, Family Practice] Activity Restrictions/Additional Instructions: Recommend scheduling your EMG. I suspect your symptoms are due to cervical/neck pathology. Print Language: Vietnamese Disposition Disposition: Home, Self Care
[2025-02-13 11:21] LABS: Hematocrit 41.3 % (37-47); Hemoglobin 14.1 g/dL (12.0-15.0); Immature Granulocytes Count 0.010 X10^3/uL (0.0-0.0); Mean Corp Hgb Conc 34.1 g/dL (32-36); Mean Corpuscular Volume 87.5 fL (81-99); Mean Platelet Vol. 10.7 fl (6.2-12.0); NRBC Flagged by Analyzer 0 % (0-5); Platelet Count 290 K/mm3 (150-450); RBC Distribution Width CV 12.2 % (11.6-14.6); RBC Distribution Width SD 39.1 fl (35.1-43.9); Red Blood Count 4.72 M/mm3 (4.2-5.4); White Blood Count 5.7 K/mm3 (4.4-11.0)
[2025-02-13 11:47] VITALS: BP 134/91; PULSE 84; RESP 16; O2SAT 97
[2025-02-13 11:48] LABS: AST(SGOT) 22 U/L (<=31); Alanine Aminotransfer ALT/SGPT 17 U/L (<=34); Albumin, Serum 4.4 g/dL (3.5-5.0); Alkaline Phosphatase 83 U/L (35-104); Anion Gap 15 (5-15); BUN 16 mg/dL (4-19); BUN/Creat Ratio 24.5 RATIO (10-20); Calcium,Total 9.9 mg/dL (7.6-11.0); Carbon Dioxide 17.2 mmol/L (21.0-32.0); Chloride 103 mmol/L (98-108); Estimated Creatinine Clearance 89.48 ml/min (50-250); Globulin 2.9 g/dL (2.2-4.2); Glucose 155 mg/dL (70-99); Potassium 4.5 mmol/L (3.3-5.1)
[2025-02-13 12:00] VITALS: BP 134/91; PULSE 84; RESP 16; O2SAT 97
--- NOTE | 2025-02-13 12:05 | CT_ITS ---
PROCEDURE: CTA NECK W/WO CONTRAST 02/13/2025 REASON FOR EXAM: PARESTHESIA RIGHT UPPER EXTREMITY WITH TURNING HEA TECHNIQUE: Procedure Code: CTCTANEWW Modality: CT Procedure: CTA NECK W/WO CONTRAST Multiplanar Sagittal and Coronal images were obtained. One or more dose reduction techniques were used (e.g., Automated exposure control, adjustment of the mA and/or kV according to patient size, use of iterative reconstruction technique). FINDINGS: Aortic Arch and Great Vessels: The aortic arch demonstrates normal caliber and configuration. The brachiocephalic, left common carotid, and left subclavian arteries are patent without stenosis or dissection. Right Carotid Artery System: The right common carotid artery is patent and normal in caliber. The right carotid bifurcation and internal and external carotid arteries are patent without significant stenosis or irregularity. Left Carotid Artery System: The left common carotid artery is patent and normal in caliber. There is mild atherosclerosis at the left carotid bulb without significant stenosis. The left internal and external carotid arteries are otherwise patent and normal in caliber. Vertebral Arteries: The right and left vertebral arteries are patent throughout their cervical courses without evidence of dissection or stenosis. Soft Tissues of the Neck: No mass, adenopathy, or abnormal enhancement. The visualized aerodigestive tract is unremarkable. Osseous Structures: Degenerative changes of the cervical spine without acute abnormality. Partially Visualized Intracranial Arteries: The partially visualized intracranial arterial segments are unremarkable. CT/CTA Neck W/WO Contrast IMPRESSION: Mild atherosclerosis of the left carotid bulb without significant stenosis. Otherwise normal CTA of the neck. Partially visualized intracranial arteries are unremarkable. Reading Location: [id number]
[2025-02-13 13:00] VITALS: BP 134/91; PULSE 81; RESP 16; O2SAT 97
[2025-02-13 13:50] VITALS: BP 143/97; PULSE 78; RESP 16; TEMP 36.1; O2SAT 97
== END 2025-02-13 13:56 | disposition home or self-care (01) ==
PROVIDERS: Emergency Provider Emergency Medicine; PCP Family Medicine; Visit Provider Emergency Medicine
DX: R20.2 Paresthesia of skin (principal); E11.65 Type 2 diabetes mellitus with hyperglycemia; R20.0 Anesthesia of skin; E78.2 Mixed hyperlipidemia; M79.601 Pain in right arm; M79.602 Pain in left arm; I10 Essential (primary) hypertension; F41.9 Anxiety disorder, unspecified; E66.3 Overweight; Z68.29 Body mass index [BMI] 29.0-29.9, adult; Z79.85 Long-term (current) use of injectable non-insulin antidiabetic drugs; Z79.82 Long term (current) use of aspirin; Z79.899 Other long term (current) drug therapy
CPT/HCPCS: 70498; 80053; 85025; 99282; Q9967; A4216

== ENCOUNTER → 2025-02-13 | Outpatient (CLI) | payer BC, SELFPAY ==
[2025-02-13 12:39] LABS: CRP 9.76 mg/L (0.0-3.0); Vitamin B12 562 pg/mL (180-914)
[2025-02-14 15:07] LABS: ANTINUCLEAR ANTIBODIES DIRECT Negative (Negative)
== END | disposition home or self-care (01) ==
LOC: LAB 10:28
PROVIDERS: PCP Family Medicine; Referring Provider Nurse Practitioner Family; Visit Provider Nurse Practitioner Family
DX: G62.9 Polyneuropathy, unspecified (principal)
CPT/HCPCS: 36415; 82607; 85652; 86038; 86140; 86225; 86617